=== PATIENT | male | born 1945 | race Caucasian/White ===

== ENCOUNTER 2016-09-09 08:08 | Day surgery (SDC) | payer OTHER ==
[2016-09-08 13:27] VITALS: BMI 27.9
[2016-09-09 13:09] LABS: TOTAL PROTEIN,PLEURAL FLUID 5.004
[2016-09-09 13:11] VITALS: TEMP 98.1
[2016-09-09 13:13] LABS: CHLORIDE PLEURAL FLUID 104
[2016-09-09 15:50] VITALS: BP 139/77; PULSE 81
[2016-09-09 20:49] LABS: PLEURAL FLUID APPEARANCE CLEAR; PLEURAL FLUID COLOR YELLOW
[2016-09-09 20:52] LABS: PLEURAL FLUID LYMPHOCYTES 26 %; PLEURAL FLUID NEUTROPHIL 4 %
[2016-09-09 20:53] LABS: PLEURAL FLUID MACROPHAGES 49 %
--- NOTE | 2016-09-10 15:55 | PATH ---
Cytology Non-Gynecological Report Patient Name: HAILEE GRANDA Med. Rec. #: [id number] /Age/Gender: 1945 (Age: 70) / M Account: [id number] Location: RADIOLOGY Taken: 09/09/2016 Received: 09/09/2016 Reported: 09/10/2016 Physicians: Zena Gaston M.D. Specimen(s) Received LEFT PLEURAL FLUID Clinical History Pleural effusion Final Diagnosis PLEURAL FLUID, LEFT, THORACENTESIS: SATISFACTORY FOR EVALUATION. SCATTERED ATYPICAL CELLS PRESENT, FAVOR REACTIVE MESOTHELIAL CELLS. BACKGROUND REACTIVE MESOTHELIAL CELLS, HISTIOCYTES AND MIXED INFLAMMATORY CELLS. Comment: Immunohistochemical stains performed and interpreted at [facility] on the cell block show the following: the cells in the effusion are negative for TTF1 immunostain, appear negative for BerEP4/DEAN immunostains with high background staining; CK7 highlights mesothelial cells. These results are supportive of the interpretation above. Electronically Signed Ej Rendon M.D. Gross Description Received is 50 cc of yellow fluid in 50% alcohol. One cytofunnel slide and one cell block are made.
== END 2016-09-09 15:45 | disposition home or self-care (01) ==
LOC: JRADIR 08:08
PROVIDERS: ATTEND Specialist
PROC: 0W9B3ZZ Drainage of Left Pleural Cavity, Percutaneous Approach (ICD-10-PCS; principal; 2016-09-09)
PROC: BB4BZZZ Ultrasonography of Pleura (ICD-10-PCS; 2016-09-09)
DX: J90 Pleural effusion, not elsewhere classified (principal)
CPT/HCPCS: 71010-TC; 71020-TC; 76942; 82042; 82150; 82438; 82945; 83615; 84157; 84311; 84478; 87070; 87075; 87102; 87116; 87205; 87206; 87210; 88108; 88305-TC; 88341-TC; 88342-TC; 89051

== ENCOUNTER 2016-09-15 10:18 | Day surgery (SDC) | payer OTHER ==
[2016-09-12 13:22] VITALS: BMI 27.9
[2016-09-15] MEDS ORDERED: ROCURONIUM BROMIDE 50 MG/5 ML VIAL ONE (12:15)
[2016-09-15] MEDS ORDERED: MIDAZOLAM HCL 2 MG/2 ML SINGLE DOSE VIAL ONE (12:15)
[2016-09-15] MEDS ORDERED: PROPOFOL 20 ML ONE ×2 (12:15)
[2016-09-15] MEDS ORDERED: ONDANSETRON 4 MG/2 ML VIAL ONE (12:53)
--- NOTE | 2016-09-15 13:01 | EKG ---
Test Reason : Blood Pressure : / mmHG Vent. Rate : 083 BPM Atrial Rate : 083 BPM P-R Int : 156 ms QRS Dur : 098 ms QT Int : 362 ms P-R-T Axes : 073 038 081 degrees QTc Int : 425 ms NORMAL SINUS RHYTHM NONSPECIFIC T WAVE ABNORMALITY ABNORMAL ECG NO PREVIOUS ECGS AVAILABLE Confirmed by DEMETRIO ROMERO, LYNN ([id number]) on 09/15/2016 1:01:08 PM Referred By: Justin Hunt Confirmed By:LYNN ATKINSON MD
[2016-09-15] MEDS ORDERED: GLYCOPYRROLATE 0.2 MG/1 ML VIAL ONE (13:24)
[2016-09-15] MEDS ORDERED: NEOSTIGMINE METHYLSULFATE 0.5 MG/ML - 10 ML MDV ONE (13:24)
[2016-09-15] MEDS ORDERED: ACETAMINOPHEN 325 MG TABLET (FP) PO PRN (13:40)
[2016-09-15] MEDS ORDERED: oxyCODONE HCL 5 MG TABLET PO PRN (13:40)
[2016-09-15] MEDS ORDERED: ONDANSETRON 4 MG/2 ML VIAL IVPUSH PRN (13:40)
[2016-09-15] MEDS ORDERED: LACTATED RINGERS SOLUTION 1,000 ML IV SCH (13:45)
--- NOTE | 2016-09-15 13:47 | PROC ---
Procedure Note Procedure: BRONCHOSCOPY After discussing the risks and benefits of the procedure including bleeding and pneumothorax, informed consent was obtained. Pt was placed under general anesthesia and intubated with size 8.0 ETT. Storz video bronchoscope was passed via the ETT and the airways were examined down to the subsegmental level. The nathan was sharp, there were no endobronchial lesions on the right. In the left upper lobe, the lingular segment was narrowed to the point where the bronchoscope could not pass. Area was brushed, washed and transbronchial biopsies were taken. Some bleeding post op but area visualized until hemostasis achieved. Bronchoscope then withdrawn and procedure terminated. Pre-op Dx: lung mass Post-op Dx: same Plan: - f/u BAL washings for cytology, culture - f/u cytology brushings and pathology - CXR post bronchoscopy - pt to follow up with me in office Justin Hunt MD
[2016-09-15 16:20] VITALS: TEMP 97.6
[2016-09-15 18:48] VITALS: BP 148/76; PULSE 89
--- NOTE | 2016-09-24 11:19 | PATH ---
Surgical Pathology Report Patient Name: HAILEE GRANDA Med. Rec. #: [id number] /Age/Gender: 1945 (Age: 70) / M Account: [id number] Location: [facility] Taken: 09/15/2016 Received: 09/16/2016 Reported: 09/19/2016 Physicians: Justin Hunt M.D. Specimen(s) Received LUNG BIOPSY LEFT UPPER LOBE Clinical History Lung mass Final Diagnosis LUNG, LEFT UPPER LOBE, BRONCHOSCOPIC BIOPSY: BRONCHIAL TISSUE WITH FEW ATYPICAL CRUSHED GLANDS AND ACTIVE AND CHRONIC INFLAMMATION (SEE COMMENT). Comment: Only few crashed atypically appearing glands identified. No further interpretation can be made in this biopsy material. Immunohistochemical stains for CK7 and TTF1 performed and interpreted at [facility] highlight only benign bronchial epithelium. Refer to [id number] for the cytology results. The case was discussed with Dr. Hunt on 09/29/16. Electronically Signed Ej Rendon M.D. Gross Description Received in formalin labeled "left upper lung biopsy" is a 0.5 x 0.3 x 0.1 cm aggregate of barrera-brown soft tissue fragments. The formalin is filtered and the specimen is entirely submitted in one cassette. /09/16/2016 saudi09/16/2016
--- NOTE | 2016-09-24 11:19 | PATH ---
Cytology Non-Gynecological Report Patient Name: HAILEE GRANDA Med. Rec. #: [id number] /Age/Gender: 1945 (Age: 70) / M Account: [id number] Location: [facility] Taken: 09/15/2016 Received: 09/15/2016 Reported: 09/19/2016 Physicians: Justin Hunt M.D. Specimen(s) Received A: BRONCHIAL WASHINGS B: BRONCHIAL BRUSHINGS Clinical History Lung mass Final Diagnosis A. LUNG, LEFT UPPER LOBE, BRONCHIAL WASHINGS: SATISFACTORY FOR EVALUATION. POSITIVE FOR MALIGNANT CELLS. CONSISTET WITH ADENOCARCINOMA (SEE COMMENT). BACKGROUND REACTIVE BRONCHIAL CELLS AND HISTIOCYTES. Comment: The cytofunnel slide and the cell block show large markedly atypical cells with irregular nuclei and vacuolated cytoplasm. Immunohistochemical stains performed and interpreted on the cell block at [facility] show the neoplastic cells are positive with CK7 immunostain and are negative with TTF1. The cytomorphologic findings and the immunoprofile are consistent with adenocarcinoma. In the absence of metastatic disease the findings likely represent primary pulmonary adenocarcinoma. Clinical and imaging correlations are suggested to exclude metastatic disease. Comment: Refer to [id number] for the bronchoscopic biopsy results. The case was discussed with Dr. Hunt on 09/19/16. Limited material is available for biomarkers studies. B. LUNG, LEFT UPPER LOBE, BRONCHIAL BRUSHING: SATISFACTORY FOR EVALUATION. NO MALIGNANT CELLS IDENTIFIED. REACTIVE BRONCHIAL CELLS. Electronically Signed Ej Rendon M.D. Gross Description A. Received is 50 cc of bloody in color fluid in 50% alcohol. One cytofunnel slide and one cell block made. B. Received is a brush in 95% alcohol. See Pap stained smears slides are made.
== END 2016-09-15 18:50 | disposition home or self-care (01) ==
LOC: JASU-SURG 10:18
PROVIDERS: ATTEND Internal Medicine
PROC: 0B988ZX Drainage of Left Upper Lobe Bronchus, Via Natural or Artificial Opening Endoscopic, Diagnostic (ICD-10-PCS; 2016-09-15)
PROC: 0BBG8ZX Excision of Left Upper Lung Lobe, Via Natural or Artificial Opening Endoscopic, Diagnostic (ICD-10-PCS; principal; 2016-09-15 12:00)
DX: D38.1 Neoplasm of uncertain behavior of trachea, bronchus and lung (principal)
CPT/HCPCS: 71010-TC; 87070; 87102; 87116; 87205; 87206; 87210; 88104; 88108; 88305-TC; 88341-TC; 88342-TC; 93005; 93010; 94010; 94760

== ENCOUNTER 2016-09-25 07:22 | Inpatient (IN) | payer OTHER ==
[2016-09-24 12:18] VITALS: BMI 27.9
--- NOTE | 2016-09-25 13:46 | HP ---
Admitting History and Physical - Primary Care Physician PCP: Sarah Ho S - Admission Chief Complaint: s/p L lung biopsy and pneumothorax History of Present Illness: 70yo male with h/o hyperlipidemia, recently diagnosed NSCLC on 09/15 via bronchoscopy who was scheduled for a CT guided needle biopsy for more tissue sample for treatment direction who was noted to have a left apical pneumothorax pre biopsy. He denies any significant shortness of breath, chest pain. No cough or hemoptysis. No fevers, chills or sweats. He had a MRI brain done yesterday for staging work up which showed scattered nodules consistent with metastases. [facility]. He has also been complaining of left arm pain, was seen by ortho as an outpt. Pigtail catheter placed post biopsy with CXR still showing left apical pneumothorax. also d/w IR dr Monaco and pt's at bedside and pulm dr BRUNNER History Source: Patient, Family Member, Medical Record Limitations to Obtaining History: No Limitations - Past Medical History Cardiovascular: Yes: Hyperlipdemia Pulmonary: Yes: Cancer - Smoking History Smoking history: Former smoker Have you smoked in the past 12 months: No - Alcohol/Substance Use Hx Alcohol Use: No (RARE) History of Substance Use: reports: None - Social History Usual Living Arrangement: Yes: With Spouse History of Recent Travel: Yes ([place]) Home Medications - Allergies Allergies/Adverse Reactions: Allergies Allergy/AdvReac Type Severity Reaction Status Date / Time No Known Allergies Allergy Verified 09/24/16 12:25 - Home Medications Home Medications: Ambulatory Orders Aspirin [ASA -] 81 mg PO DAILY 09/08/16 Atorvastatin Ca [Lipitor] 40 mg PO DAILY 09/08/16 Vitamin B Complex 1 each PO DAILY 09/09/16 Acetaminophen W/ Codeine #3 [Tylenol # 3 -] 1 tab PO Q4H PRN 09/24/16 Family Disease History - Family Disease History Family History: Unremarkable Review of Systems - Review of Systems Constitutional: denies: Chills, Fever, Lethargy, Loss of Appetite Eyes: denies: Blind Spots, Blurred Vision, Double Vision HENT: denies: Difficult Swallowing, Epistaxis, Gingival Bleeding, Throat Pain Neck: denies: Decreased ROM, Lumps, Pain on Movement, Stiffness Cardiovascular: denies: Chest Pain (except at the chest tube site), Edema, Palpitations, Shortness of Breath Respiratory: reports: Cough (s/p cough for few weeks tx with ATB in [place]). denies: Exercise Intolerance, Hemoptysis, Orthopnea, PND, SOB, SOB on Exertion, Wheezing Gastrointestinal: denies: Abdominal Pain, Bloating, Constipation, Diarrhea, Dysphagia, Vomiting Genitourinary: denies: Discharge, Dysuria, Flank Pain, Hematuria Musculoskeletal: reports: Extremity Pain (LUE). denies: Back Pain Neurological: denies: Change in LOC, Change in Speech, Confusion, Dizziness, Headache, Seizure, Syncope Hematology/Lymphatic: denies: Easily Bruised, Excessive Bleeding Psychiatric: denies: Altered Sleep Pattern, Anxiety, Depression, Hallucinations , Suicidal Physical Examination Vital Signs: Vital Signs Temperature 98.1 F 09/25/16 07:41 Pulse Rate 78 09/25/16 10:38 Respiratory Rate 18 09/25/16 10:38 Blood Pressure 157/98 09/25/16 10:38 O2 Sat by Pulse Oximetry (%) 100 09/25/16 10:38 Constitutional: Yes: No Distress, Calm Eyes: Yes: Conjunctiva Clear HENT: Yes: Atraumatic Neck: Yes: Supple Cardiovascular: Yes: Regular Rate and Rhythm Respiratory: Yes: CTA Bilaterally, Other (L CT) Gastrointestinal: Yes: Soft. No: Distention, Tenderness Renal/: No: CVA Tenderness - Left, CVA Tenderness - Right, Hematuria Musculoskeletal: No: Joint Stiffness, Joint Swelling Extremities: No: Cold, Cool, Cyanosis Edema: No Peripheral Pulses WNL: Yes Integumentary: No: Pressure Ulcer, Rash, Venous Stasis Changes Neurological: Yes: WNL, Alert, Oriented ...Motor Strength: WNL Psychiatric: Yes: WNL, Alert, Oriented. No: Agitated, Suicidal Ideation Imaging - Results Chest X-ray: Report Reviewed MRI: Report Reviewed (brain) Assessment/Plan 70yo male with h/o hyperlipidemia, recently diagnosed NSCLC on 09/15 via bronchoscopy, now s/p CT for guided needle lung biopsy for more tissue sample for treatment direction, noted to have a left apical pneumothorax pre biopsy. He denies any significant shortness of breath, chest pain. No cough or hemoptysis. No fevers, chills or sweats. He had a MRI brain done yesterday for staging work up which showed scattered nodules consistent with metastases. Has an oncology appointment for next week and a PET scan scheduled for October 02. He has also been complaining of left arm pain, was seen by ortho as an outpt. Pigtail catheter placed post biopsy with CXR still showing left apical pneumothorax. admit to INPT pulm, oncology and neurology eval falls and DVT pfx check final path report d/w pt and
[2016-09-25 14:49] LABS: BASOPHIL 0.8 % (0-2.0); EOSINOPHIL 2.2 % (0-4.5); MCH 25.2 pg (25.7-33.7); MEAN CELL VOLUME 76.5 fl (80-96); MEAN PLT VOLUME 6.7 fl (7.5-11.1); NEUTROPHILS 74.7 % (42.8-82.8); PLATELET COUNT 180 K/MM3 (134-434); RDW 16.7 % (11.9-15.9); WHITE BLOOD COUNT 7.5 K/mm3 (4.0-10.0)
[2016-09-25 15:38] LABS: ALBUMIN 2.4 g/dl (3.4-5.0); ALK PHOS 195 U/L (45-117); ANION GAP 11 (8-16); BILIRUBIN,TOTAL 0.4 mg/dL (0.2-1.0); CALCIUM 8.8 mg/dL (8.5-10.1); CO2 27 mmol/L (21-32); CREATININE 0.6 mg/dL (0.7-1.3); GLUCOSE,RANDOM 107 mg/dL (74-106); SGOT/AST 29 U/L (15-37); SGPT/ALT 34 U/L (12-78); TOT PROT 6.7 g/dl (6.4-8.2)
--- NOTE | 2016-09-25 16:27 | CON.PULM ---
Consult Consult Specialty:: PULMONARY Referred by:: Dr. Ho Reason for Consultation:: pneumothorax/lung ca - History of Present Illness Chief Complaint: CT guided needle biopsy History of Present Illness: 70yo male with h/o hyperlipidemia, recently diagnosed NSCLC on 09/15 via bronchoscopy who was scheduled for a CT guided needle biopsy for more tissue sample for treatment direction who was noted to have a left apical pneumothorax pre biopsy. He denies any significant shortness of breath, chest pain. No cough or hemoptysis. No fevers, chills or sweats. He had a MRI brain done yesterday for staging work up which showed scattered nodules consistent with metastases. Has an oncology appointment for next week and a PET scan scheduled for October 02. He has also been complaining of left arm pain, was seen by ortho as an outpt. Pigtail catheter placed post biopsy with CXR still showing left apical pneumothorax. - History Source History Provided By: Patient, Medical Record Limitations to Obtaining History: No Limitations - Past Medical History Cardio/Vascular: Yes: Hyperlipdemia Pulmonary: Yes: Cancer - Alcohol/Substance Use Hx Alcohol Use: Yes (RARE) - Smoking History Smoking history: Former smoker Have you smoked in the past 12 months: No Home Medications - Allergies Allergies/Adverse Reactions: Allergies Allergy/AdvReac Type Severity Reaction Status Date / Time No Known Allergies Allergy Verified 09/24/16 12:25 - Home Medications Home Medications: Ambulatory Orders Aspirin [ASA -] 81 mg PO DAILY 09/08/16 Atorvastatin Ca [Lipitor] 40 mg PO DAILY 09/08/16 Vitamin B Complex 1 each PO DAILY 09/09/16 Acetaminophen W/ Codeine #3 [Tylenol # 3 -] 1 tab PO Q4H PRN 09/24/16 Review of Systems - Review of Systems Constitutional: reports: Unintentional Wgt. Loss. denies: Chills, Fever Eyes: denies: Recent Change in Vision HENT: denies: Nasal Congestion, Throat Pain Neck: denies: Stiffness, Tenderness Cardiovascular: denies: Chest Pain, Palpitations, Shortness of Breath Respiratory: reports: Cough, SOB on Exertion. denies: Hemoptysis, SOB, Wheezing Gastrointestinal: denies: Abdominal Pain, Nausea, Vomiting Genitourinary: denies: Dysuria, Hematuria Neurological: denies: Dizziness, Headache Endocrine: reports: Unexplained Weight Loss Physical Exam Vital Sings: Vital Signs Temperature 98.7 F 09/25/16 12:50 Pulse Rate 73 09/25/16 16:05 Respiratory Rate 18 09/25/16 16:05 Blood Pressure 142/70 09/25/16 16:05 O2 Sat by Pulse Oximetry (%) 98 09/25/16 16:05 Constitutional: Yes: Calm Eyes: Yes: Conjunctiva Clear, EOM Intact HENT: Yes: Atraumatic, Normocephalic Neck: Yes: Supple, Trachea Midline Cardiovascular: Yes: Regular Rate and Rhythm Respiratory: Yes: Diminished (decreased breath sounds left base) ...Clubbing: No Gastrointestinal: Yes: Normal Bowel Sounds, Soft. No: Tenderness Edema: No Neurological: Yes: Alert, Oriented Labs: CBC, BMP 09/25/16 14:26 09/25/16 14:26 Imaging - Results Chest X-ray: Report Reviewed, Image Reviewed (left apical pneumothorax) Problem List - Problems (1) Lung cancer Code(s): C34.90 - MALIGNANT NEOPLASM OF UNSP PART OF UNSP BRONCHUS OR LUNG (2) Brain metastases Code(s): C79.31 - SECONDARY MALIGNANT NEOPLASM OF BRAIN (3) Hyperlipidemia Code(s): E78.5 - HYPERLIPIDEMIA, UNSPECIFIED (4) Pleural effusion Code(s): J90 - PLEURAL EFFUSION, NOT ELSEWHERE CLASSIFIED (5) Pneumothorax Code(s): J93.9 - PNEUMOTHORAX, UNSPECIFIED Assessment/Plan Metastatic NSCLC (Adenocarcinoma) with Brain Metastases r/o Bone Mets Hyperlipidemia Pneumothorax Pleural Effusion - continue pigtail catheter to low wall suction - repeat CXR in AM - pneumothorax on CXR may be from trapped lung as there is no re-expansion after pigtail placement - f/u pathology results - oncology evaluation - check left shoulder X-ray - pain control - DVT prophylaxis Thank you for this consult Justin Hunt MD
[2016-09-25] MEDS: ACETAMINOPHEN WITH CODEINE 300MG/30MG TABLET PO PRN (21:54)
--- NOTE | 2016-09-25 22:07 | CONSULT ---
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 Recent bronchoscopic biopsy revealed Non-small cell Lung Ca. Two months of slowly progressing pain and weakness Left arm. Unable to golf x 1 month. For 2 weeks his is aware of abnormal speech and difficulty "getting the words out." MRI of brain (C-/C+) reviewed:Multiple enhancing lesions c/w metastases. The three most prominent are located in the left thalamus and right and left frontal lobes. LETHA: Normal neck ROM. - spinal palpation tenderness, Chest tube left chest. NEURO: Awake, alert. Ox3. Mild expressive aphasia. Mild Left facial Left drift. Mild decreased grasp and CARMENCITA's on Left. Brisk reflexes. Downgoing toes. Decreased cold temperature Left arm. No FTN dystaxia Gait not tested. IMP: Multiple LEGISLATORS Metastases including Left thalamic, Bifrontal with mild left hemiparesis, Aphasia and Right hypesthesia. R/O Cervical radiculopathy/ cervical met. SUGGEST: MRI of C-spine. Decadron 4 mg PO or IV q6 hrs. Radiation oncology consultation for whole brain RT. Thank you very much, Edmund Tomas MD
--- NOTE | 2016-09-25 22:44 | CONSULT ---
Consult - text type - Consultation Consultation Note: patient seen and examined 70yo male with h/o hyperlipidemia, recently diagnosed NSCLC on 09/15 via bronchoscopy who was scheduled for a CT guided needle biopsy for more tissue sample for treatment direction who was noted to have a left apical pneumothorax pre biopsy. He denies any significant shortness of breath, chest pain. No cough or hemoptysis. No fevers, chills or sweats. He had a MRI brain done for staging work up which showed scattered nodules consistent with metastases. He has also been complaining of left arm pain, was seen by ortho as an outpt. Pigtail catheter placed post biopsy with CXR still showing left apical pneumothorax. - Past Medical History Cardiovascular: Yes: Hyperlipdemia Pulmonary: nonsmall cell lung cancer - Smoking History Smoking history: Former smoker - Alcohol/Substance Use Hx Alcohol Use: No (RARE) - Social History Usual Living Arrangement: Yes: With Spouse History of Recent Travel: Yes ([place]) Home Medications - Allergies Allergies/Adverse Reactions: Allergies Allergy/AdvReac Type Severity Reaction Status Date / Time No Known Allergies Allergy Verified 09/24/16 12:25 - Home Medications Home Medications: Ambulatory Orders Aspirin [ASA -] 81 mg PO DAILY 09/08/16 Atorvastatin Ca [Lipitor] 40 mg PO DAILY 09/08/16 Vitamin B Complex 1 each PO DAILY 09/09/16 Acetaminophen W/ Codeine #3 [Tylenol # 3 -] 1 tab PO Q4H PRN 09/24/16 Family Disease History - Family Disease History Family History: Unremarkable Physical Examination Vital Signs: Vital Signs Temperature 98.1 F 09/25/16 07:41 Pulse Rate 78 09/25/16 10:38 Respiratory Rate 18 09/25/16 10:38 Blood Pressure 157/98 09/25/16 10:38 O2 Sat by Pulse Oximetry (%) 100 09/25/16 10:38 Constitutional: Yes: No Distress, Calm Eyes: Yes: Conjunctiva Clear HENT: Yes: Atraumatic Neck: Yes: Supple Cardiovascular: Yes: Regular Rate and Rhythm Respiratory: Yes: CTA Bilaterally, Gastrointestinal: Yes: Soft. Peripheral Pulses WNL: Yes Neurological: Yes: WNL, Alert, Oriented ...Motor Strength: WNL Imaging - Results Chest X-ray: Report Reviewed MRI: Report Reviewed (brain) Assessment/Plan 70yo male with h/o hyperlipidemia, recently diagnosed NSCLC on 09/15 via bronchoscopy, now s/p CT for guided needle lung biopsy for more tissue sample for treatment direction, noted to have a left apical pneumothorax pre biopsy. Recently diagnosed ANDRE adenoca. Now with LT. shoulder pain, multiple brain mets on MRI get neuro/rad-onc cosults check ct lt. shoulder/bone scan will add pdl1 and egfr/alk/ros mutation testing discussed with
[2016-09-26] MEDS: DEXAMETHASONE SOD PHOSPHATE 4 MG/1 ML VIAL IVPB SCH ×5 (03:00→21:51)
[2016-09-26 08:05] LABS: BASOPHIL 0.6 % (0-2.0); EOSINOPHIL 3.4 % (0-4.5); MCH 25.4 pg (25.7-33.7); MCHC 32.9 g/dl (32.0-35.9); MEAN CELL VOLUME 77.3 fl (80-96); MEAN PLT VOLUME 6.9 fl (7.5-11.1); NEUTROPHILS 68.8 % (42.8-82.8); PLATELET COUNT 172 K/MM3 (134-434); RDW 17.2 % (11.9-15.9); WHITE BLOOD COUNT 7.4 K/mm3 (4.0-10.0)
[2016-09-26 08:41] LABS: ALBUMIN 2.4 g/dl (3.4-5.0); ANION GAP 11 (8-16); BILIRUBIN,TOTAL 0.6 mg/dL (0.2-1.0); CO2 28 mmol/L (21-32); COCKROFT - GAULT 119.23; CREATININE 0.7 mg/dL (0.7-1.3); GLUCOSE,RANDOM 124 mg/dL (74-106); SGOT/AST 25 U/L (15-37); SGPT/ALT 29 U/L (12-78); TOT PROT 6.8 g/dl (6.4-8.2)
[2016-09-26 08:42] LABS: ALK PHOS 184 U/L (45-117)
[2016-09-26] MEDS ORDERED: PT OWN MED DRAWER 7, Y5N ONE ×2 (10:25→11:41)
--- NOTE | 2016-09-26 10:25 | PN ---
Progress Note, Physician Chief Complaint: in bed awake alert NAD afebrile seen by neuro, pulm, oncology, RxTx also called for brain RxTx started on IV steroids; will check BGM no pain nonfocal d/w pt and falls pfx; pt advised do not get OOB alone, call for help if needs OOB; he understood L CT in, CT Sx alos called - Current Medication List Current Medications: Active Medications Acetaminophen/Codeine Phosphate (Tylenol # 3 -) 1 tab PO Q4H PRN PRN Reason: PAIN Last Admin: 09/25/16 21:54 Dose: 1 tab Aspirin (Asa -) 81 mg PO DAILY ROBERT Atorvastatin Calcium (Lipitor -) 40 mg PO DAILY ROBERT Dexamethasone Sodium Phosphate (Decadron Injection -) 4 mg IVPB Q6H-IV ROBERT Last Admin: 09/26/16 08:20 Dose: Not Given Multivitamins (Total B With C -) 1 each PO DAILY ROBERT - Objective Vital Signs: Vital Signs Temperature 98.8 F 09/26/16 06:00 Pulse Rate 68 09/26/16 06:00 Respiratory Rate 20 09/26/16 06:00 Blood Pressure 133/71 09/26/16 06:00 O2 Sat by Pulse Oximetry (%) 98 09/25/16 21:00 Constitutional: Yes: No Distress, Calm Eyes: Yes: Conjunctiva Clear HENT: Yes: Atraumatic Neck: Yes: Supple Cardiovascular: Yes: Regular Rate and Rhythm Respiratory: Yes: CTA Bilaterally Gastrointestinal: Yes: Soft. No: Distention, Tenderness Genitourinary: No: CVA Tenderness - Left, CVA Tenderness - Right Musculoskeletal: No: Joint Stiffness, Joint Swelling Extremities: No: Cold, Cool Edema: No Peripheral Pulses WNL: Yes Neurological: Yes: WNL, Alert, Oriented ...Motor Strength: WNL Psychiatric: Yes: WNL, Alert, Oriented. No: Agitated, Suicidal Ideation Labs: CBC, BMP 09/26/16 06:30 09/26/16 06:30 - ....Imaging Other: Report Reviewed Assessment/Plan 70yo male with h/o hyperlipidemia, recently diagnosed NSCLC on 09/15 via bronchoscopy, now s/p CT for guided needle lung biopsy for more tissue sample for treatment direction, noted to have a left apical pneumothorax pre biopsy. He denies any significant shortness of breath, chest pain. No cough or hemoptysis. No fevers, chills or sweats. He had a MRI brain done yesterday for staging work up which showed scattered nodules consistent with metastases. Has an oncology appointment for next week and a PET scan scheduled for October 02. He has also been complaining of left arm pain, was seen by ortho as an outpt. Pigtail catheter placed post biopsy with CXR still showing left apical pneumothorax. admit to INPT pulm, oncology and neurology eval falls and DVT pfx (TEDs and SCDs on); no heparin or lovenox b/o brain mets risk of bleed check final path report d/w pt and
[2016-09-26] MEDS: ASPIRIN 81 MG CHEWABLE TABLETS PO SCH (10:43)
[2016-09-26] MEDS: ATORVASTATIN CA 40 MG TABLET (FP) PO SCH (10:43)
--- NOTE | 2016-09-26 12:07 | PN ---
Progress Note (short form) - Note Progress Note: PULMONARY WELL KNOWN BY OUR SERVICE FAMILY PRESENT AWAKE/ALERT VSS/AFEBRILE ANICTERIC DISTANT B/L BREATH SOUNDS LEFT PIGTAIL CATHETER-PLEUROVAC S1S2 BS+ SCD'S B/L CXR NOTED: LEFT UPPER LOBE MASS/LEFT APICAL PTX REMAINS MEDS/NOTES REVIEWED NSCLC LEFT UPPER LOBE POST FOB PTX NOW WITH PIGTAIL CATHETER BRAIN METS ON MRI SEVERE LEFT SHOULDER PAIN R/O BONE METS WILL ORDER BONE SCAN ONCO F/U DVT PROPHYLAXSIS R ROSSI ROMERO
[2016-09-26] MEDS: VITAMIN B COMPLEX W/C COMBO TABLET (FP) PO SCH (12:42)
--- NOTE | 2016-09-26 16:55 | PATH ---
Surgical Pathology Report Patient Name: HAILEE GRANDA Med. Rec. #: [id number] /Age/Gender: 1945 (Age: 70) / M Account: [id number] Location: [facility] MED/SURG Taken: 09/25/2016 Received: 09/25/2016 Reported: 09/26/2016 Physicians: Bin Jackson M.D. Justin Hunt M.D. Zena Chase M.D. Specimen(s) Received LEFT LUNG CORE BIOPSY Clinical History 70 yo male with a large left central mass Final Diagnosis LUNG, LEFT, CT GUIDED CORE BIOPSY: ADENOCARCINOMA, MODERATELY TO POORLY DIFFERENTIATED, WITH ACINAR, SOLID AND FOCAL LEPIDIC PATTERNS, WITH EXTENSIVE NECROSIS (SEE COMMENT). Comment: Prior bronchoscopic biopsy ([id number]) demonstrating few atypical glands and prior cytology specimen ([id number]) demonstrating adenocarcinoma in the bronchial washings are noted. Immunohistochemical stains performed and interpreted at [facility] show the following results: The neoplastic cells are positive for CK7 and CK20 immunostains, and negative with p63 immunostain; TTF1 immunostain highlights predominantly residual benign cells. Mucicarmine stain shows very focal mucin. The morphologic findings and the immunoprofile are consistent with adenocarcinoma. The immunoprofile is not specific for a particular site origin: in the absence of another possible primary site, the finding would be compatible with lung origin of this neoplasm. PD-L1 (Keytruda) IHC studies are pending; results will be reported in an addendum. The material is available for molecular biomarkers studies. The case was preliminary discussed with Dr. León on 09/26/16. Electronically Signed Ej Rendon M.D. Addendum Reported: 10/01/2016 Addendum Diagnosis PD-L1 (Keytruda) IHC, Clone 22C3 Pharm Dx performed and interpreted at [place], [place] (specimen # [id number]) shows the following: Result: PD-L1 (KEYTRUDA) TPS: <1% (NO EXPRESSION) Reference Range: TPS=Tumor Proportion Score (% of at least 100 viable tumor cells showing complete or partial membrane staining at =1+) TPS< 1% =No Expression TPS 1-49% =Low Expression. Eligible for second line treatment with Keytruda. TPS =50% =High Expression. Eligible for first or second line treatment with Keytruda. The PD-L1, 22C3 pharmDx is FDA approved for use in the detection of PD-L1 in formalin-fixed paraffin-embedded non-small cell lung carcinoma using the [employer] platform. The assay is indicated as an aid in identifying NSCLC patients for treatment with Keytruda (pembrolizumab). Ej Rendon M.D. Addendum Reported: 10/03/2016 Addendum Diagnosis FISH for ALK and ROS1 rearrangements performed and interpreted at [facility] [place], [place] showed the following: Interpretation: No evidence of a rearrangement of ALK (2p23) No evidence of a rearrangement of ROS1 (6q22) Ej Rendon M.D. Addendum Reported: 10/06/2016 Addendum Diagnosis EGFR MUTATION ANALYSIS PERFORMED AND INTERPRETED AT [facility] [place], [place] ([id number]) SHOWED THE FOLLOWING: Results: No mutation detected Interpretation: No mutations were identified in the sample provided for analysis. Fewer than 5% of non-small cell lung carcinoma patients without identifiable mutations are reported to be responsive to EGFR tyrosine kinase inhibitor therapies. Ej Rendon M.D. Gross Description Received in formalin labeled "left lung biopsy," are 4 barrera, cylindrical portions of soft tissue ranging from 0.8-1.4 cm in length and averaging 0.1 cm in diameter. The specimens are submitted in toto in one cassette. 09/25/201609/25/2016
--- NOTE | 2016-09-26 16:56 | PATH ---
Cytology Non-Gynecological Report Patient Name: HAILEE GRANDA Med. Rec. #: [id number] /Age/Gender: 1945 (Age: 70) / M Account: [id number] Location: [facility] MED/SURG Taken: 09/25/2016 Received: 09/25/2016 Reported: 09/26/2016 Physicians: Zena Gaston M.D. Smitha Mellacheruvu, M.D. Ana Androne, M.D. Specimen(s) Received PLEURAL FLUID Clinical History Pleural effusion, lung mass Final Diagnosis PLEURAL FLUID, THORACENTESIS: SATISFACTORY FOR EVALUATION. SCATTERED ATYPICAL CELLS PRESENT, SUSPICIOUS FOR INVOLVEMENT BY ADENOCARCINOMA (SEE COMMENT). Comment: History of recently diagnosed adenocarcinoma is noted ([id number], [id number]). Immunohistochemical stains performed and interpreted on the cell block [facility] show the following: few cells in the effusion are positive for BerEP4/DEAN immunostain and CK7 immunostain, which also highlights epithelial cells; the cells in the effusion are negative for TTF1. The cytomorphologic findings and the immunoprofile are suspicious for involvement by recently diagnosed adenocarcinoma. Electronically Signed Ej Rendon M.D. Gross Description Received is 50 cc of bloody fluid in 50% alcohol. One cytofunnel slides and one cell block are made.
--- NOTE | 2016-09-26 18:27 | PN ---
Progress Note (short form) - Note Progress Note: Radiation Oncology (full consult to follow) 70yo former smoker recently dx'd w ANDRE Adenoca s/p thoracentesis and FOB, admitted for bx for additional tissue for stains found to have PTX s/p chest tube, MRI brain demonstrating multiple (at least 6) bilateral lesions with mass effect on ventricle c/w mets. On review with radiologist, there are progressive mets in the left humeral head and right 7th lateral rib. No new SOB or hemoptysis. CXR shows improved but persistent PTX. Path from CT-bx shows adenocarcinoma, PDL-1 pending. Presently neurologically stable with mild expressive aphasia, left sided weakness in addition to pain in left shoulder. I concur with Dr. Tomas's recommendation for WBRT and in addition palliative RT to the left shoulder. Agree with CT of left upper extremity and bone scan to better define extent of bony disease. Agree with continuing decadron. While awaiting additional stains which may be helpful in systemic tx decision, he can proceed with XRT once cleared by IR and Pulmonary. Follow up CXR for PTX and CTS consult discussed. Pt and are agreeable to continuing the workup and treatment here.
[2016-09-26] MEDS ORDERED: HEPARIN NA (PORCINE) 5,000 UNITS/ML 1ML VIAL SQ SCH (22:00)
--- NOTE | 2016-09-26 23:16 | PN ---
Progress Note (short form) - Note Progress Note: Patient seen and examined Denies any complaints AFVSS Cor: RSR, No murmurs, No gallops Lungs: Clear to P&A Abd: Soft, Normal bowel sounds, No organomegaly Ext:No significant edema Skin: No rashes, Integument intact Labs/meds reviewed A/P 70 y/o patient with metastatic lung cancer/adenoca Lt. shoulder met brain mets with pneumothorax after biopsy , s/p chest tube will monitor will need MRI C-spine/bone scan once chest tube is taken out
[2016-09-27] MEDS: DEXAMETHASONE SOD PHOSPHATE 4 MG/1 ML VIAL IVPB SCH ×4 (03:35→21:10)
--- NOTE | 2016-09-27 06:46 | CONSULT ---
Consult - text type - Consultation Consultation Note: Thoracic Surgery Attending: Pt seen/examined. Consulted for pneumothorax s/p biopsy of lung mass. Imaging c/ w diffuse metastatic disease and likely malignant effusion. S/p CT guided bx, developed pneumothorax which was the reason for consult. Likely pneumothorax secondary to some endobronchial obstruction, trap of lung from tumor, as well. However, it has slowly expanded. There is no obvious air-leak on the pleurovac but it is not tidaling. He needs to undergo palliative radiation. Would monitor drainage and leave tube for now. If drains high amounts, reasonable to convert to pleur-x (I did not mention this option to him and his family yet). If drainage is low would do clamp trial or convert to Heimlich valve. If plan is to get palliative radiation therapy as inpatient would leave tube in for now. I have spent 40minutes with greater than 50% in counseling and coordination of care and obtaining a history/physical, and reviewing images and pathology results.
[2016-09-27 07:38] LABS: BASOPHIL 0.1 % (0-2.0); MCH 25.2 pg (25.7-33.7); MEAN CELL VOLUME 76.5 fl (80-96); MEAN PLT VOLUME 6.8 fl (7.5-11.1); NEUTROPHILS 89.6 % (42.8-82.8); PLATELET COUNT 208 K/MM3 (134-434); RDW 17.1 % (11.9-15.9); WHITE BLOOD COUNT 11.4 K/mm3 (4.0-10.0)
--- NOTE | 2016-09-27 08:49 | PN ---
Progress Note, Physician Chief Complaint: in bed nad at bedside no new c/o lung biopsy preliminary noted oncology and RxTx f/u chest tube still in for pneumothorax had some constipation; ordered miralax prn, po water and high fiber diet - Current Medication List Current Medications: Active Medications Acetaminophen/Codeine Phosphate (Tylenol # 3 -) 1 tab PO Q4H PRN PRN Reason: PAIN Last Admin: 09/25/16 21:54 Dose: 1 tab Aspirin (Asa -) 81 mg PO DAILY [facility] Last Admin: 09/26/16 10:43 Dose: 81 mg Atorvastatin Calcium (Lipitor -) 40 mg PO DAILY [facility] Last Admin: 09/26/16 10:43 Dose: 40 mg Dexamethasone Sodium Phosphate (Decadron Injection -) 4 mg IVPB Q6H-IV [facility] Last Admin: 09/27/16 03:35 Dose: 4 mg Multivitamins (Total B With C -) 1 each PO DAILY [facility] Last Admin: 09/26/16 12:42 Dose: 1 each - Objective Vital Signs: Vital Signs Temperature 96.3 F L 09/27/16 06:00 Pulse Rate 58 L 09/27/16 06:00 Respiratory Rate 20 09/27/16 06:00 Blood Pressure 127/67 09/27/16 06:00 O2 Sat by Pulse Oximetry (%) 98 09/26/16 21:00 Constitutional: Yes: No Distress, Calm Eyes: Yes: Conjunctiva Clear HENT: Yes: Atraumatic Neck: Yes: Supple Cardiovascular: Yes: Regular Rate and Rhythm Respiratory: Yes: CTA Bilaterally Gastrointestinal: Yes: Soft. No: Distention, Tenderness Musculoskeletal: No: Joint Stiffness, Joint Swelling Extremities: No: Calf Tenderness, Cold, Cool Edema: No Neurological: Yes: WNL, Alert, Oriented ...Motor Strength: WNL Psychiatric: Yes: WNL, Alert, Oriented. No: Agitated, Suicidal Ideation Labs: CBC, BMP 09/27/16 06:00 - ....Imaging Other: Report Reviewed Assessment/Plan 70yo male with h/o hyperlipidemia, recently diagnosed NSCLC on 09/15 via bronchoscopy, now s/p CT for guided needle lung biopsy for more tissue sample for treatment direction, noted to have a left apical pneumothorax pre biopsy. He denies any significant shortness of breath, chest pain. No cough or hemoptysis. No fevers, chills or sweats. He had a MRI brain done yesterday for staging work up which showed scattered nodules consistent with metastases. Has an oncology appointment for next week and a PET scan scheduled for October 02. He has also been complaining of left arm pain, was seen by ortho as an outpt. Pigtail catheter placed post biopsy with CXR still showing left apical pneumothorax. admit to INPT pulm, oncology and neurology eval falls and DVT pfx (TEDs and SCDs on); no heparin or lovenox b/o brain mets risk of bleed check final path report miralax po prn d/w pt and
[2016-09-27] MEDS ORDERED: PT OWN MED DRAWER 7, Y5N ONE (09:31)
[2016-09-27] MEDS: ASPIRIN 81 MG CHEWABLE TABLETS PO SCH (09:43)
[2016-09-27] MEDS: VITAMIN B COMPLEX W/C COMBO TABLET (FP) PO SCH (09:44)
[2016-09-27 09:52] LABS: ALBUMIN 2.3 g/dl (3.4-5.0); BILIRUBIN,TOTAL 0.3 mg/dL (0.2-1.0); SGOT/AST 14 U/L (15-37)
[2016-09-27 11:05] LABS: ALK PHOS 173 U/L (45-117); ANION GAP 12 (8-16); CALCIUM 9.2 mg/dL (8.5-10.1); CO2 26 mmol/L (21-32); COCKROFT - GAULT 119.23; CREATININE 0.7 mg/dL (0.7-1.3); GLUCOSE,RANDOM 225 mg/dL (74-106); SGPT/ALT 26 U/L (12-78)
--- NOTE | 2016-09-27 11:26 | PN ---
Progress Note (short form) - Note Progress Note: Awake and alert. No CP or SOB. No air leak noted. CXR: Small apical PTX Intake & Output 09/24/16 09/25/16 09/26/16 09/27/16 23:59 23:59 23:59 23:59 Intake Total 150 50 Output Total 2570 650 Balance -2570 -500 50 Weight 184 lb Last Vital Signs Temp Pulse Resp BP Pulse Ox 96.3 F L 58 L 20 127/67 98 09/27/16 06:00 09/27/16 06:00 09/27/16 06:00 09/27/16 06:00 09/26/16 21:00 Active Medications Acetaminophen/Codeine Phosphate (Tylenol # 3 -) 1 tab PO Q4H PRN PRN Reason: PAIN Last Admin: 09/25/16 21:54 Dose: 1 tab Aspirin (Asa -) 81 mg PO DAILY [facility] Last Admin: 09/27/16 09:43 Dose: 81 mg Atorvastatin Calcium (Lipitor -) 40 mg PO DAILY [facility] Last Admin: 09/26/16 10:43 Dose: 40 mg Dexamethasone Sodium Phosphate (Decadron Injection -) 4 mg IVPB Q6H-IV [facility] Last Admin: 09/27/16 09:43 Dose: 4 mg Multivitamins (Total B With C -) 1 each PO DAILY [facility] Last Admin: 09/27/16 09:44 Dose: 1 each Constitutional: Yes: NAD Eyes: Yes: Conjunctiva Clear, EOM Intact HENT: Yes: Atraumatic, Normocephalic Neck: Yes: Supple, Trachea Midline Cardiovascular: Yes: Regular Rate and Rhythm Respiratory: Yes: Left pigtail -> No air leak ...Clubbing: No Gastrointestinal: Yes: Normal Bowel Sounds, Soft. No: Tenderness Edema: No Neurological: Yes: Alert, Oriented Labs: Laboratory Results - last 24 hr 09/27/16 09/27/16 06:00 06:00 WBC 11.4 H D RBC 4.45 Hgb 11.2 L Hct 34.0 L MCV 76.5 L MCHC 33.0 RDW 17.1 H Plt Count 208 D MPV 6.8 L Neutrophils % 89.6 H D Lymphocytes % 6.6 L D Monocytes % 3.7 L Eosinophils % 0.0 D Basophils % 0.1 Sodium 138 Potassium 4.5 Chloride 100 Carbon Dioxide 26 Anion Gap 12 BUN 23 H D Creatinine 0.7 Creat Clearance w eGFR > 60 Random Glucose 225 H D Calcium 9.2 Total Bilirubin 0.3 D AST 14 L D ALT 26 Alkaline Phosphatase 173 H Total Protein 7.0 Albumin 2.3 L Problem List - Problems (1) Lung cancer Code(s): C34.90 - MALIGNANT NEOPLASM OF UNSP PART OF UNSP BRONCHUS OR LUNG (2) Brain metastases Code(s): C79.31 - SECONDARY MALIGNANT NEOPLASM OF BRAIN (3) Hyperlipidemia Code(s): E78.5 - HYPERLIPIDEMIA, UNSPECIFIED (4) Pleural effusion Code(s): J90 - PLEURAL EFFUSION, NOT ELSEWHERE CLASSIFIED (5) Pneumothorax Code(s): J93.9 - PNEUMOTHORAX, UNSPECIFIED Assessment/Plan Metastatic NSCLC (Adenocarcinoma) with Brain Metastases Bone Mets Hyperlipidemia Pneumothorax Pleural Effusion - continue pigtail catheter to low wall suction - repeat CXR in AM - pneumothorax on CXR may be from trapped lung as there is no re-expansion after pigtail placement - f/u final pathology results - pain control - DVT prophylaxis Dr Chamberlain
[2016-09-27] MEDS: ATORVASTATIN CA 40 MG TABLET (FP) PO SCH (12:04)
[2016-09-27] MEDS: INSULIN SLIDING SCALE (NOVOLOG) 1 VIAL SQ SCH ×2 (16:08→23:03)
[2016-09-27] MEDS: ACETAMINOPHEN WITH CODEINE 300MG/30MG TABLET PO PRN (19:44)
[2016-09-28] MEDS: DEXAMETHASONE SOD PHOSPHATE 4 MG/1 ML VIAL IVPB SCH ×4 (03:25→21:23)
[2016-09-28] MEDS: INSULIN SLIDING SCALE (NOVOLOG) 1 VIAL SQ SCH ×4 (06:36→21:23)
[2016-09-28 07:14] LABS: BASOPHIL 0.1 % (0-2.0); MCH 25.2 pg (25.7-33.7); MCHC 32.9 g/dl (32.0-35.9); MEAN CELL VOLUME 76.6 fl (80-96); MEAN PLT VOLUME 6.9 fl (7.5-11.1); NEUTROPHILS 90.2 % (42.8-82.8); PLATELET COUNT 226 K/MM3 (134-434); WHITE BLOOD COUNT 13.7 K/mm3 (4.0-10.0)
[2016-09-28 07:48] LABS: ALBUMIN 2.3 g/dl (3.4-5.0); ANION GAP 7 (8-16); BILIRUBIN,TOTAL 0.4 mg/dL (0.2-1.0); CALCIUM 8.9 mg/dL (8.5-10.1); CO2 29 mmol/L (21-32); COCKROFT - GAULT 104.32; CREATININE 0.8 mg/dL (0.7-1.3); GLUCOSE,RANDOM 191 mg/dL (74-106); SGOT/AST 18 U/L (15-37); SGPT/ALT 33 U/L (12-78); TOT PROT 6.8 g/dl (6.4-8.2)
[2016-09-28 07:49] LABS: ALK PHOS 163 U/L (45-117)
[2016-09-28] MEDS ORDERED: PT OWN MED DRAWER 7, Y5N ONE (09:21)
[2016-09-28] MEDS: ACETAMINOPHEN WITH CODEINE 300MG/30MG TABLET PO PRN (09:30)
[2016-09-28] MEDS: ATORVASTATIN CA 40 MG TABLET (FP) PO SCH (09:31)
[2016-09-28] MEDS: ASPIRIN 81 MG CHEWABLE TABLETS PO SCH (09:31)
[2016-09-28] MEDS: VITAMIN B COMPLEX W/C COMBO TABLET (FP) PO SCH (09:32)
--- NOTE | 2016-09-28 11:52 | PN ---
Progress Note (short form) - Note Progress Note: Awake and alert. No CP or SOB. No air leak noted. CXR: Small apical PTX Intake & Output 09/25/16 09/26/16 09/27/16 09/28/16 23:59 23:59 23:59 23:59 Intake Total 150 800 50 Output Total 2570 650 400 Balance -2570 -500 400 50 Last Vital Signs Temp Pulse Resp BP Pulse Ox 97.7 F 48 L 18 126/67 99 09/28/16 06:22 09/28/16 06:22 09/28/16 06:22 09/28/16 06:22 09/27/16 21:00 Active Medications Acetaminophen/Codeine Phosphate (Tylenol # 3 -) 1 tab PO Q4H PRN PRN Reason: PAIN Last Admin: 09/28/16 09:30 Dose: 1 tab Aspirin (Asa -) 81 mg PO DAILY [facility] Last Admin: 09/28/16 09:31 Dose: 81 mg Atorvastatin Calcium (Lipitor -) 40 mg PO DAILY [facility] Last Admin: 09/28/16 09:31 Dose: 40 mg Dexamethasone Sodium Phosphate (Decadron Injection -) 4 mg IVPB Q6H-IV [facility] Last Admin: 09/28/16 09:31 Dose: 4 mg Insulin Aspart (Novolog Vial Sliding Scale -) 1 vial SQ ACHS [facility] PRN Reason: Protocol Last Admin: 09/28/16 06:36 Dose: 2 units Multivitamins (Total B With C -) 1 each PO DAILY [facility] Last Admin: 09/28/16 09:32 Dose: 1 each Constitutional: Yes: NAD Eyes: Yes: Conjunctiva Clear, EOM Intact HENT: Yes: Atraumatic, Normocephalic Neck: Yes: Supple, Trachea Midline Cardiovascular: Yes: Regular Rate and Rhythm Respiratory: Yes: Left pigtail -> No air leak ...Clubbing: No Gastrointestinal: Yes: Normal Bowel Sounds, Soft. No: Tenderness Edema: No Neurological: Yes: Alert, Oriented Labs: Laboratory Results - last 24 hr 09/27/16 09/27/16 09/28/16 16:06 22:59 06:10 WBC 13.7 H RBC 4.51 Hgb 11.4 L Hct 34.6 L MCV 76.6 L MCHC 32.9 RDW 17.0 H Plt Count 226 MPV 6.9 L Neutrophils % 90.2 H Lymphocytes % 6.4 L Monocytes % 3.3 L Eosinophils % 0.0 Basophils % 0.1 Sodium Potassium Chloride Carbon Dioxide Anion Gap BUN Creatinine Creat Clearance w eGFR POC Glucometer 302 319 Random Glucose Calcium Total Bilirubin AST ALT Alkaline Phosphatase Total Protein Albumin 09/28/16 09/28/16 06:10 06:31 WBC RBC Hgb Hct MCV MCHC RDW Plt Count MPV Neutrophils % Lymphocytes % Monocytes % Eosinophils % Basophils % Sodium 138 Potassium 4.4 Chloride 102 Carbon Dioxide 29 Anion Gap 7 L BUN 23 H Creatinine 0.8 Creat Clearance w eGFR > 60 POC Glucometer 187 Random Glucose 191 H Calcium 8.9 Total Bilirubin 0.4 D AST 18 D ALT 33 D Alkaline Phosphatase 163 H Total Protein 6.8 Albumin 2.3 L Problem List - Problems (1) Lung cancer Code(s): C34.90 - MALIGNANT NEOPLASM OF UNSP PART OF UNSP BRONCHUS OR LUNG (2) Brain metastases Code(s): C79.31 - SECONDARY MALIGNANT NEOPLASM OF BRAIN (3) Hyperlipidemia Code(s): E78.5 - HYPERLIPIDEMIA, UNSPECIFIED (4) Pleural effusion Code(s): J90 - PLEURAL EFFUSION, NOT ELSEWHERE CLASSIFIED (5) Pneumothorax Code(s): J93.9 - PNEUMOTHORAX, UNSPECIFIED Assessment/Plan Metastatic NSCLC (Adenocarcinoma) with Brain Metastases Bone Mets Hyperlipidemia Pneumothorax Pleural Effusion - continue pigtail catheter to low wall suction - repeat CXR in AM - pneumothorax on CXR may be from trapped lung as there is no re-expansion after pigtail placement - f/u final pathology results - pain control - DVT prophylaxis Dr Chamberlain
[2016-09-28] MEDS ORDERED: SENNOSIDES 8.6MG TABLET (FP) PO PRN (11:56)
--- NOTE | 2016-09-28 12:20 | PN ---
Progress Note, Physician Chief Complaint: CXR with residula pneumothorax, chest tube still in all consults and results reviewed and d/w pt and at bedside - Current Medication List Current Medications: Active Medications Acetaminophen/Codeine Phosphate (Tylenol # 3 -) 1 tab PO Q4H PRN PRN Reason: PAIN Last Admin: 09/28/16 09:30 Dose: 1 tab Aspirin (Asa -) 81 mg PO DAILY [facility] Last Admin: 09/28/16 09:31 Dose: 81 mg Atorvastatin Calcium (Lipitor -) 40 mg PO DAILY [facility] Last Admin: 09/28/16 09:31 Dose: 40 mg Dexamethasone Sodium Phosphate (Decadron Injection -) 4 mg IVPB Q6H-IV [facility] Last Admin: 09/28/16 09:31 Dose: 4 mg Insulin Aspart (Novolog Vial Sliding Scale -) 1 vial SQ ACHS [facility] PRN Reason: Protocol Last Admin: 09/28/16 06:36 Dose: 2 units Multivitamins (Total B With C -) 1 each PO DAILY [facility] Last Admin: 09/28/16 09:32 Dose: 1 each Polyethylene Glycol (Miralax (For Daily Use) -) 17 gm PO DAILY [facility] Senna (Senna -) 2 tab PO HS PRN PRN Reason: CONSTIPATION - Objective Vital Signs: Vital Signs Temperature 97.7 F 09/28/16 06:22 Pulse Rate 48 L 09/28/16 06:22 Respiratory Rate 18 09/28/16 06:22 Blood Pressure 126/67 09/28/16 06:22 O2 Sat by Pulse Oximetry (%) 99 09/27/16 21:00 Constitutional: Yes: No Distress, Calm Eyes: Yes: Conjunctiva Clear HENT: Yes: Atraumatic Neck: Yes: Supple Cardiovascular: Yes: Regular Rate and Rhythm Respiratory: Yes: CTA Bilaterally Gastrointestinal: Yes: Soft. No: Tenderness Musculoskeletal: No: Joint Stiffness, Joint Swelling, Muscle Pain Extremities: No: Calf Tenderness, Cold, Cool, Cyanosis Edema: No Integumentary: No: Rash, Skin Tear, Venous Stasis Changes Neurological: Yes: WNL, Alert, Oriented ...Motor Strength: WNL Psychiatric: Yes: WNL, Alert, Oriented. No: Agitated, Suicidal Ideation Labs: CBC, BMP 09/28/16 06:10 09/28/16 06:10 - ....Imaging Other: Report Reviewed Assessment/Plan 70yo male with h/o hyperlipidemia, recently diagnosed NSCLC on 09/15 via bronchoscopy, now s/p CT for guided needle lung biopsy for more tissue sample for treatment direction, noted to have a left apical pneumothorax pre biopsy. He denies any significant shortness of breath, chest pain. No cough or hemoptysis. No fevers, chills or sweats. He had a MRI brain which showed scattered nodules consistent with metastases. Has an oncology appointment for next week and a PET scan scheduled for October 02. He has also been complaining of left arm pain, was seen by ortho as an outpt. Pigtail catheter placed post biopsy with CXR still showing left apical pneumothorax. admit to INPT pulm, oncology and neurology eval falls and DVT pfx (TEDs and SCDs on); no heparin or lovenox b/o brain mets risk of bleed check final path report miralax po prn d/w pt and
[2016-09-28] MEDS: POLYETHYLENE GLYCOL 3350 119 GM BTL PO SCH (12:36)
[2016-09-29] MEDS: DEXAMETHASONE SOD PHOSPHATE 4 MG/1 ML VIAL IVPB SCH ×4 (02:28→21:02)
[2016-09-29] MEDS: INSULIN SLIDING SCALE (NOVOLOG) 1 VIAL SQ SCH ×4 (06:06→21:02)
[2016-09-29 08:15] LABS: BASOPHIL 0.1 % (0-2.0); MCHC 32.5 g/dl (32.0-35.9); MEAN PLT VOLUME 7.2 fl (7.5-11.1); NEUTROPHILS 87.5 % (42.8-82.8); PLATELET COUNT 227 K/MM3 (134-434); RDW 16.9 % (11.9-15.9); WHITE BLOOD COUNT 11.7 K/mm3 (4.0-10.0)
[2016-09-29 08:34] LABS: ALBUMIN 2.2 g/dl (3.4-5.0); ANION GAP 11 (8-16); CALCIUM 8.6 mg/dL (8.5-10.1); CO2 28 mmol/L (21-32); COCKROFT - GAULT 119.23; CREATININE 0.7 mg/dL (0.7-1.3); GLUCOSE,RANDOM 242 mg/dL (74-106); SGOT/AST 16 U/L (15-37); SGPT/ALT 34 U/L (12-78)
[2016-09-29 08:36] LABS: ALK PHOS 156 U/L (45-117); BILIRUBIN,TOTAL 0.4 mg/dL (0.2-1.0); TOT PROT 6.4 g/dl (6.4-8.2)
--- NOTE | 2016-09-29 09:31 | PN ---
Progress Note (short form) - Note Progress Note: PULMONARY HAD LEFT SHOULDER PAIN RELIEVED BY TYLENOL #3 AWAKE/ALERT VSS/AFEBRILE ANICTERIC DISTANT B/L BREATH SOUNDS LEFT PIGTAIL CATHETER-PLEUROVAC S1S2 BS+ SCD'S B/L CXR NOTED: LEFT UPPER LOBE MASS/LEFT APICAL PTX REMAINS FROM 09/28 CXR TODAY PENDING MEDS/NOTES REVIEWED NSCLC LEFT UPPER LOBE POST FOB PTX NOW WITH PIGTAIL CATHETER BRAIN METS ON MRI SEVERE LEFT SHOULDER PAIN FROM LYTIC BONE METS ONCO F/U/ONCO RT NOTED DVT PROPHYLAXSIS/DECADRON/PAIN RELIEF/CHECK CXR TODAY Evelio RICHEY MD
[2016-09-29] MEDS: ASPIRIN 81 MG CHEWABLE TABLETS PO SCH (10:25)
[2016-09-29] MEDS: ATORVASTATIN CA 40 MG TABLET (FP) PO SCH (10:25)
[2016-09-29] MEDS: POLYETHYLENE GLYCOL 3350 119 GM BTL PO SCH ×2 (10:28→11:10)
[2016-09-29] MEDS: VITAMIN B COMPLEX W/C COMBO TABLET (FP) PO SCH (10:28)
--- NOTE | 2016-09-29 11:02 | PN ---
Progress Note, Physician Chief Complaint: in bed nad afebrile no new c/o - Current Medication List Current Medications: Active Medications Acetaminophen/Codeine Phosphate (Tylenol # 3 -) 1 tab PO Q4H PRN PRN Reason: PAIN Last Admin: 09/28/16 09:30 Dose: 1 tab Aspirin (Asa -) 81 mg PO DAILY [facility] Last Admin: 09/29/16 10:25 Dose: 81 mg Atorvastatin Calcium (Lipitor -) 40 mg PO DAILY [facility] Last Admin: 09/29/16 10:25 Dose: 40 mg Dexamethasone Sodium Phosphate (Decadron Injection -) 4 mg IVPB Q6H-IV [facility] Last Admin: 09/29/16 09:25 Dose: 4 mg Insulin Aspart (Novolog Vial Sliding Scale -) 1 vial SQ ACHS [facility] PRN Reason: Protocol Last Admin: 09/29/16 06:06 Dose: 4 units Multivitamins (Total B With C -) 1 each PO DAILY [facility] Last Admin: 09/29/16 10:28 Dose: 1 each Polyethylene Glycol (Miralax (For Daily Use) -) 17 gm PO DAILY [facility] Last Admin: 09/29/16 10:28 Dose: Not Given Senna (Senna -) 2 tab PO HS PRN PRN Reason: CONSTIPATION - Objective Vital Signs: Vital Signs Temperature 98.3 F 09/29/16 06:00 Pulse Rate 47 L 09/29/16 06:00 Respiratory Rate 20 09/29/16 06:00 Blood Pressure 125/68 09/29/16 06:00 O2 Sat by Pulse Oximetry (%) 93 L 09/28/16 09:00 Constitutional: Yes: No Distress, Calm Eyes: Yes: Conjunctiva Clear HENT: Yes: Atraumatic Neck: Yes: Supple Cardiovascular: Yes: Regular Rate and Rhythm Respiratory: Yes: CTA Bilaterally Gastrointestinal: Yes: Soft Genitourinary: No: Hematuria Musculoskeletal: No: Joint Stiffness Extremities: No: Cold, Cool Edema: No Neurological: Yes: WNL, Alert, Oriented ...Motor Strength: WNL Psychiatric: Yes: WNL, Alert, Oriented. No: Agitated Labs: CBC, BMP 09/29/16 06:30 09/29/16 06:30 - ....Imaging Other: Report Reviewed Assessment/Plan 70yo male with h/o hyperlipidemia, recently diagnosed NSCLC on 09/15 via bronchoscopy, now s/p CT for guided needle lung biopsy for more tissue sample for treatment direction, noted to have a left apical pneumothorax pre biopsy. He denies any significant shortness of breath, chest pain. No cough or hemoptysis. No fevers, chills or sweats. He had a MRI brain which showed scattered nodules consistent with metastases. Left humeral metastases. pulm, oncology and neurology f/u radiation oncology eval for inpt radiation iv decadron per neuro for brain mets falls and DVT pfx (TEDs and SCDs on); no heparin or lovenox b/o brain mets risk of bleed pt advised do not get OOB alone, call for help if needs OOB; risks of falls dw pt and ; start po PPI for gastric PFX/ on decadron BGM and sq insulin prn / while on decadron miralax po prn d/w pt and
--- NOTE | 2016-09-29 11:44 | PN ---
Progress Note (short form) - Note Progress Note: Vascular Surgery Pt seen and examined. Spoke to pt and bedside. Will be on standby for port placement. Once cleared will place port Luis Conti DO
[2016-09-29] MEDS: PANTOPRAZOLE 40 MG TABLET (FP) PO SCH (20:04)
--- NOTE | 2016-09-29 22:49 | PN ---
Progress Note (short form) - Note Progress Note: Patient seen and examined Denies any complaints AFVSS Cor: RSR, No murmurs, No gallops Lungs: Clear to P&A Abd: Soft, Normal bowel sounds, No organomegaly Ext:No significant edema Skin: No rashes, Integument intact Labs/meds reviewed A/P 70 y/o patient with metastatic lung cancer/adenoca Lt. shoulder met brain mets/Lt. shoulder met On decadron rad-onc f/u
[2016-09-30] MEDS: DEXAMETHASONE SOD PHOSPHATE 4 MG/1 ML VIAL IVPB SCH ×4 (02:28→21:17)
[2016-09-30] MEDS: INSULIN SLIDING SCALE (NOVOLOG) 1 VIAL SQ SCH ×4 (06:22→21:23)
[2016-09-30 08:06] LABS: BASOPHIL 0.1 % (0-2.0); MCH 25.3 pg (25.7-33.7); MEAN CELL VOLUME 76.7 fl (80-96); NEUTROPHILS 87.2 % (42.8-82.8); PLATELET COUNT 224 K/MM3 (134-434); RDW 16.7 % (11.9-15.9); WHITE BLOOD COUNT 12.2 K/mm3 (4.0-10.0)
[2016-09-30 08:30] LABS: CALCIUM 8.9 mg/dL (8.5-10.1); COCKROFT - GAULT 119.23; CREATININE 0.7 mg/dL (0.7-1.3)
[2016-09-30] MEDS: ATORVASTATIN CA 40 MG TABLET (FP) PO SCH (09:35)
[2016-09-30] MEDS: POLYETHYLENE GLYCOL 3350 119 GM BTL PO SCH (09:35)
[2016-09-30] MEDS: VITAMIN B COMPLEX W/C COMBO TABLET (FP) PO SCH (09:35)
[2016-09-30] MEDS: PANTOPRAZOLE 40 MG TABLET (FP) PO SCH (09:35)
[2016-09-30] MEDS: ASPIRIN 81 MG CHEWABLE TABLETS PO SCH (09:35)
--- NOTE | 2016-09-30 09:53 | PN ---
Progress Note (short form) - Note Progress Note: Radiation Oncology c/o left arm pain with analgesics. Denies VINCENT/N/dizziness/diplopia. Chest tube to pleurovac. Tenderness in left shoulder. Mild expressive aphasia. Left arm weakness. B toes upgoing. CXR: persistent small ptx A/P Symptomatic brain and bone mets 2/2 lung adenoca, neurologically stable on decadron. Seen by CT surgery and pulmonary, cont mgt of pneumothorax. If deemed stable for transport to our office w/ or w/o chest tube in place, consider starting inpt WBRT. Cont steroids and pain mgt. Would benefit from CT left upper extremity.
--- NOTE | 2016-09-30 11:05 | PN ---
Progress Note, Physician Chief Complaint: no new c/o; at bedside; - Current Medication List Current Medications: Active Medications Acetaminophen/Codeine Phosphate (Tylenol # 3 -) 1 tab PO Q4H PRN PRN Reason: PAIN Last Admin: 09/28/16 09:30 Dose: 1 tab Aspirin (Asa -) 81 mg PO DAILY [facility] Last Admin: 09/30/16 09:35 Dose: 81 mg Atorvastatin Calcium (Lipitor -) 40 mg PO DAILY [facility] Last Admin: 09/30/16 09:35 Dose: 40 mg Dexamethasone Sodium Phosphate (Decadron Injection -) 4 mg IVPB Q6H-IV [facility] Last Admin: 09/30/16 09:35 Dose: 4 mg Insulin Aspart (Novolog Vial Sliding Scale -) 1 vial SQ ACHS [facility] PRN Reason: Protocol Last Admin: 09/30/16 06:22 Dose: 4 units Multivitamins (Total B With C -) 1 each PO DAILY [facility] Last Admin: 09/30/16 09:35 Dose: 1 each Pantoprazole Sodium (Protonix -) 40 mg PO DAILY [facility] Last Admin: 09/30/16 09:35 Dose: 40 mg Polyethylene Glycol (Miralax (For Daily Use) -) 17 gm PO DAILY [facility] Last Admin: 09/30/16 09:35 Dose: 17 grams Senna (Senna -) 2 tab PO HS PRN PRN Reason: CONSTIPATION - Objective Vital Signs: Vital Signs Temperature 97.6 F 09/30/16 06:39 Pulse Rate 68 09/30/16 06:39 Respiratory Rate 20 09/30/16 06:39 Blood Pressure 127/64 09/30/16 06:39 O2 Sat by Pulse Oximetry (%) 97 09/29/16 21:00 Constitutional: Yes: No Distress, Calm Eyes: Yes: Conjunctiva Clear HENT: Yes: Atraumatic Neck: Yes: Supple Cardiovascular: Yes: Regular Rate and Rhythm Respiratory: Yes: CTA Bilaterally Gastrointestinal: Yes: Soft. No: Distention, Tenderness Genitourinary: No: CVA Tenderness - Left, CVA Tenderness - Right, Hematuria Musculoskeletal: No: Joint Stiffness, Joint Swelling Extremities: No: Cold, Cool Edema: No Peripheral Pulses WNL: Yes Neurological: Yes: WNL, Alert, Oriented ...Motor Strength: WNL Psychiatric: Yes: WNL, Alert, Oriented. No: Agitated Labs: CBC, BMP 09/30/16 06:50 09/30/16 06:50 - ....Imaging Other: Report Reviewed Assessment/Plan 70yo male with h/o hyperlipidemia, recently diagnosed NSCLC on 09/15 via bronchoscopy, now s/p CT for guided needle lung biopsy for more tissue sample for treatment direction, noted to have a left apical pneumothorax pre biopsy. He denies any significant shortness of breath, chest pain. No cough or hemoptysis. No fevers, chills or sweats. He had a MRI brain which showed scattered nodules consistent with metastases. Left humeral metastases. pulm, oncology and neurology f/u radiation oncology eval for inpt radiation iv decadron per neuro for brain mets left chest tube still in falls and DVT pfx (TEDs and SCDs on); no heparin or lovenox b/o brain mets risk of bleed pt advised do not get OOB alone, call for help if needs OOB; risks of falls dw again with pt and ; started on po PPI for gastric PFX/ on decadron BGM and sq insulin prn / while on decadron d/w pt and about path results - mod to poor differentiated adenoCA carry unfortunately worse prognosis; also the fact that initial CT form august did not show bone mets while the CT scan from September does, also carry an aggressive, poor prognosis. Pt and decided to stay here and continue treatement with the local specialists for now. miralax po prn d/w pt and
--- NOTE | 2016-09-30 11:24 | PN ---
Progress Note (short form) - Note Progress Note: Thoracic F/U: Yesterday's CXR stable. No evidence of air-leak and minimal drainage. Now on water seal. Will check cxr today. Would start rad tx while tube is in on water seal and then do clamp trial and remove Thursday. Discussed with Dr. Costello who is comfortable with plan.
--- NOTE | 2016-09-30 12:13 | PN ---
Progress Note (short form) - Note Progress Note: Awake and alert. No CP or SOB. No air leak noted on water seal. Intake & Output 09/27/16 09/28/16 09/29/16 09/30/16 23:59 23:59 23:59 23:59 Intake Total 990 833 4308 400 Output Total 400 1400 1495 450 Balance 400 -1180 -355 -50 Last Vital Signs Temp Pulse Resp BP Pulse Ox 97.4 F L 54 L 18 124/67 97 09/30/16 09:00 09/30/16 09:00 09/30/16 09:00 09/30/16 09:00 09/29/16 21:00 Active Medications Acetaminophen/Codeine Phosphate (Tylenol # 3 -) 1 tab PO Q4H PRN PRN Reason: PAIN Last Admin: 09/28/16 09:30 Dose: 1 tab Aspirin (Asa -) 81 mg PO DAILY [facility] Last Admin: 09/30/16 09:35 Dose: 81 mg Atorvastatin Calcium (Lipitor -) 40 mg PO DAILY [facility] Last Admin: 09/30/16 09:35 Dose: 40 mg Dexamethasone Sodium Phosphate (Decadron Injection -) 4 mg IVPB Q6H-IV [facility] Last Admin: 09/30/16 09:35 Dose: 4 mg Insulin Aspart (Novolog Vial Sliding Scale -) 1 vial SQ ACHS [facility] PRN Reason: Protocol Last Admin: 09/30/16 06:22 Dose: 4 units Multivitamins (Total B With C -) 1 each PO DAILY [facility] Last Admin: 09/30/16 09:35 Dose: 1 each Pantoprazole Sodium (Protonix -) 40 mg PO DAILY [facility] Last Admin: 09/30/16 09:35 Dose: 40 mg Polyethylene Glycol (Miralax (For Daily Use) -) 17 gm PO DAILY [facility] Last Admin: 09/30/16 09:35 Dose: 17 grams Senna (Senna -) 2 tab PO HS PRN PRN Reason: CONSTIPATION Constitutional: Yes: NAD Eyes: Yes: Conjunctiva Clear, EOM Intact HENT: Yes: Atraumatic, Normocephalic Neck: Yes: Supple, Trachea Midline Cardiovascular: Yes: Regular Rate and Rhythm Respiratory: Yes: Left pigtail -> No air leak ...Clubbing: No Gastrointestinal: Yes: Normal Bowel Sounds, Soft. No: Tenderness Edema: No Neurological: Yes: Alert, Oriented Labs: Laboratory Results - last 24 hr 09/29/16 09/29/16 09/29/16 11:48 16:48 20:56 WBC RBC Hgb Hct MCV MCHC RDW Plt Count MPV Neutrophils % Lymphocytes % Monocytes % Eosinophils % Basophils % Sodium Potassium Chloride Carbon Dioxide Anion Gap BUN Creatinine POC Glucometer 240 296 268 Random Glucose Calcium 09/30/16 09/30/16 09/30/16 06:07 06:50 06:50 WBC 12.2 H RBC 4.46 Hgb 11.3 L Hct 34.2 L MCV 76.7 L MCHC 33.0 RDW 16.7 H Plt Count 224 MPV 7.0 L Neutrophils % 87.2 H Lymphocytes % 8.6 Monocytes % 4.1 Eosinophils % 0.0 Basophils % 0.1 Sodium 134 L Potassium 4.5 Chloride 98 Carbon Dioxide 27 Anion Gap 9 BUN 20 H Creatinine 0.7 POC Glucometer 223 Random Glucose 210 H Calcium 8.9 Problem List - Problems (1) Lung cancer Code(s): C34.90 - MALIGNANT NEOPLASM OF UNSP PART OF UNSP BRONCHUS OR LUNG (2) Brain metastases Code(s): C79.31 - SECONDARY MALIGNANT NEOPLASM OF BRAIN (3) Hyperlipidemia Code(s): E78.5 - HYPERLIPIDEMIA, UNSPECIFIED (4) Pleural effusion Code(s): J90 - PLEURAL EFFUSION, NOT ELSEWHERE CLASSIFIED (5) Pneumothorax Code(s): J93.9 - PNEUMOTHORAX, UNSPECIFIED Assessment/Plan 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
--- NOTE | 2016-09-30 17:13 | CONS ---
DATE OF CONSULTATION: 09/26/2016 REQUESTING PHYSICIAN: Kathrin León M.D. REASON FOR CONSULTATION: Metastatic lung cancer with brain metastases. HISTORY OF PRESENT ILLNESS: The patient is a 70-year-old gentleman with prior smoking history who was recently diagnosed with a left upper lobe lung mass with prominent left hilum and small left pleural effusion as well as a 1.5 cm right paratracheal lymph node on chest CT. He underwent thoracentesis, which showed atypical cells in the pleural fluid, followed by fiberoptic bronchoscopy with bronchial washings which showed pulmonary adenocarcinoma. He was admitted for additional tissue biopsy and was noted to have pneumothorax. He underwent CT guided biopsy of the left upper lobe mass which showed a moderate to poorly differentiated pulmonary adenocarcinoma, PD-L1 pending. The pleural fluid is positive. He had pigtail catheter placement to Pleurovac suction. An MRI of the brain disclosed multiple (at least 6) brain metastases with mass effect on the ventricle. He was evaluated by neurology, who recommends starting steroids and consideration of whole brain radiation therapy as well as an MRI of the cervical spine. He reports a productive cough without hemoptysis, shortness of breath, chest pain, visual changes, dizziness, headaches, nausea, or vomiting. He has word finding difficulty. He has pain in the left upper extremity for 2 months. Left shoulder x-ray showed left apical pneumothorax, left upper lobe lung mass, no lytic or blastic changes with mild degenerative changes in the AC joint. No history of radiation therapy or collagen vascular disease. PAST MEDICAL HISTORY: Hyperlipidemia. Tonsillectomy. ALLERGIES: No known drug allergies. CURRENT MEDICATIONS: Decadron 4 mg q.6 hours, Lipitor, aspirin 81 mg, Tylenol No. 3 p.r.n. FAMILY HISTORY: Noncontributory. SOCIAL HISTORY: , no children. Former smoker. No significant alcohol use. REVIEW OF SYSTEMS: As noted. PHYSICAL EXAMINATION: General: Well appearing, well nourished, well developed male appearing his chronological age in no acute distress. at bedside. Vital Signs: Temperature 98.8, blood pressure 133/71, pulse 68, respiratory rate 20, Sao2 of 98% room air. HEENT: Normocephalic, atraumatic. Moist mucous membranes. Anicteric sclerae. Clear oral cavity. Neck: No cervical adenopathy. No supraclavicular adenopathy. Chest: Left chest tube attached to Pleurovac. No palpable tenderness or mass in the paraspinal region. Decreased breath sounds left upper lobe. Cardiovascular: Regular. Abdomen: Soft, nontender. Nondistended. Extremities: No peripheral edema. Point tenderness on left shoulder. No mass or swelling along the clavicle or AC joint. Neurologic: Awake, alert, oriented x3. Mild expressive aphasia. Unable to name the president or month. Mild left facial droop. Motor exam positive for left pronator drift, inability to raise the left upper extremity over the shoulder, decreased left nurse specialist. Lower extremity motor exam is equal bilaterally. Deep tendon reflexes are brisk throughout, bilateral toes upgoing. Sensation to light touch is intact. Gait was not tested for patient's safety. RADIOLOGIC DATA: 1. CT chest as noted. 2. MRI of the brain, as noted. 3. Chest x-ray, little significant change in 5 to 10 percent residual left apical pneumothorax with left-sided pigtail chest tube re-identified. PATHOLOGIC DATA: As noted. IMPRESSION/PLAN: A 70-year-old former smoker with stage IV pulmonary adenocarcinoma status post thoracentesis, fiberoptic bronchoscopy and CT guided biopsies with post procedure pneumothorax, currently with chest tube to Pleurovac. He has multiple brain metastases with local mass effect. He has mild expressive aphasia and arm weakness which may be related to pain in the left shoulder. I reviewed the radiologic studies with the radiologist, who notes aggressive changes in the left humeral head and right rib consistent with metastases on the recent biospy CT scan. I agree with whole brain radiation therapy and in addition, the patient would benefit from palliative radiotherapy to the left shoulder for pain control. A bone scan and CT of the left upper extremity and possible MRI of the cervical spine would be helpful in defining extent of disease. While awaiting final pathology results which will be helpful in guiding systemic treatment decisions, he could proceed with radiation therapy once cleared from the pulmonary standpoint. Follow up chest x-ray and await thoracic surgery consult. Continue Decadron and pain management. Patient and are agreeable to continuing the workup and treatment here. Will continue to follow the patient with you and commence radiation therapy when stable. Thank you for asking me to see this patient. TERE SCHULZ M.D. [id number] MTDD
[2016-10-01] MEDS: DEXAMETHASONE SOD PHOSPHATE 4 MG/1 ML VIAL IVPB SCH ×4 (01:59→21:39)
[2016-10-01] MEDS: INSULIN SLIDING SCALE (NOVOLOG) 1 VIAL SQ SCH ×4 (06:14→21:45)
[2016-10-01] MEDS: PANTOPRAZOLE 40 MG TABLET (FP) PO SCH (09:37)
[2016-10-01] MEDS: VITAMIN B COMPLEX W/C COMBO TABLET (FP) PO SCH (09:37)
[2016-10-01] MEDS: ATORVASTATIN CA 40 MG TABLET (FP) PO SCH (09:37)
[2016-10-01] MEDS: ASPIRIN 81 MG CHEWABLE TABLETS PO SCH (09:37)
--- NOTE | 2016-10-01 09:59 | PN ---
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 While chest tube keeps lung more expanded, I don't think he is at risk of tension ptx as there is no evidence of air-leak and there is a chest tube in. OK to proceed to XRT if Pulmonary team agrees.
[2016-10-01] MEDS: POLYETHYLENE GLYCOL 3350 119 GM BTL PO SCH (11:24)
--- NOTE | 2016-10-01 11:58 | PN ---
Progress Note, Physician Chief Complaint: in bed has on/off LUE pain no headaches. - Current Medication List Current Medications: Active Medications Acetaminophen/Codeine Phosphate (Tylenol # 3 -) 1 tab PO Q4H PRN PRN Reason: PAIN Last Admin: 09/28/16 09:30 Dose: 1 tab Aspirin (Asa -) 81 mg PO DAILY [facility] Last Admin: 10/01/16 09:37 Dose: 81 mg Atorvastatin Calcium (Lipitor -) 40 mg PO DAILY [facility] Last Admin: 10/01/16 09:37 Dose: 40 mg Dexamethasone Sodium Phosphate (Decadron Injection -) 4 mg IVPB Q6H-IV [facility] Last Admin: 10/01/16 09:37 Dose: 4 mg Insulin Aspart (Novolog Vial Sliding Scale -) 1 vial SQ ACHS [facility] PRN Reason: Protocol Last Admin: 10/01/16 06:14 Dose: 4 units Multivitamins (Total B With C -) 1 each PO DAILY [facility] Last Admin: 10/01/16 09:37 Dose: 1 each Pantoprazole Sodium (Protonix -) 40 mg PO DAILY [facility] Last Admin: 10/01/16 09:37 Dose: 40 mg Polyethylene Glycol (Miralax (For Daily Use) -) 17 gm PO DAILY [facility] Last Admin: 10/01/16 11:24 Dose: 17 grams Senna (Senna -) 2 tab PO HS PRN PRN Reason: CONSTIPATION Last Admin: 10/01/16 09:37 Dose: 2 tab - Objective Vital Signs: Vital Signs Temperature 97.4 F L 10/01/16 06:38 Pulse Rate 45 L 10/01/16 06:38 Respiratory Rate 20 10/01/16 06:38 Blood Pressure 122/64 10/01/16 06:38 O2 Sat by Pulse Oximetry (%) 96 09/30/16 21:00 Constitutional: Yes: No Distress, Calm Eyes: Yes: Conjunctiva Clear HENT: Yes: Atraumatic Neck: Yes: Supple Cardiovascular: Yes: Regular Rate and Rhythm Respiratory: Yes: CTA Bilaterally Gastrointestinal: Yes: Soft. No: Distention, Tenderness Genitourinary: No: CVA Tenderness - Left, CVA Tenderness - Right Musculoskeletal: No: Joint Stiffness, Joint Swelling Extremities: No: Cold, Cool Edema: No Integumentary: No: Rash, Venous Stasis Changes Neurological: Yes: WNL, Alert, Oriented ...Motor Strength: WNL Psychiatric: Yes: WNL, Alert, Oriented. No: Agitated, Suicidal Ideation Labs: CBC, BMP 09/30/16 06:50 09/30/16 06:50 - ....Imaging Other: Report Reviewed Assessment/Plan 70yo male with h/o hyperlipidemia, recently diagnosed NSCLC on 09/15 via bronchoscopy, now s/p CT for guided needle lung biopsy for more tissue sample for treatment direction, noted to have a left apical pneumothorax pre biopsy. He denies any significant shortness of breath, chest pain. No cough or hemoptysis. No fevers, chills or sweats. He had a MRI brain which showed scattered nodules consistent with metastases. Left humeral metastases. pulm, oncology and neurology f/u radiation oncology eval for inpt radiation iv decadron per neuro for brain mets left chest tube still in falls and DVT pfx (TEDs and SCDs on); no heparin or lovenox b/o brain mets risk of bleed pt advised do not get OOB alone, call for help if needs OOB; started on po PPI for gastric PFX/ on decadron BGM and sq insulin prn / while on decadron miralax po prn d/w pt and
[2016-10-01] MEDS ORDERED: INSULIN (NOVOLOG) ASPART 100 UNITS/ML 10ML VIAL ONE (12:34)
--- NOTE | 2016-10-01 13:07 | PN ---
Progress Note (short form) - Note Progress Note: PULMONARY OFFERS NO COMPLAINTS AWAKE/ALERT VSS/AFEBRILE ANICTERIC DISTANT B/L BREATH SOUNDS LEFT PIGTAIL CATHETER-PLEUROVAC S1S2 BS+ SCD'S B/L CXR NOTED: LEFT UPPER LOBE MASS/LEFT APICAL PTX REMAINS FROM 09/28 MEDS/NOTES REVIEWED NSCLC LEFT UPPER LOBE PTX POST BX/SMALL BORE CT IN PLACE BRAIN METS ON MRI SEVERE LEFT SHOULDER PAIN FROM LYTIC BONE METS ONCO F/U/ONCO RT NOTED DVT PROPHYLAXSIS/DECADRON/PAIN RELIEF/WBRT TODAY Evelio RICHEY MD
--- NOTE | 2016-10-01 15:04 | PN ---
Progress Note (short form) - Note Progress Note: Radiation Oncology Left arm pain persists, denies VINCENT/N/dizziness/SOB/CP. Chest tube to pleurovac. Tenderness left shoulder. Mild expressive aphasia. Left arm weakness. B toes upgoing. Bone scan: increased uptake in left humeral head and right lateral rib. CXR: persistent large apical left pneumothorax and ANDRE mass. 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 CT surgery and pulmonary notes reviewed and appreciated. Deemed stable for RT. Received 1st WBRT today without difficult. Simulated for left shoulder tx to begin tomorrow. ?Role for RT to left hilar mass to relieve postobstructive lung collapse. CT surgery input. Cont decadron po, may consider beginning slow taper after 5th tx. Will cont RT tomorrow. updated.
[2016-10-02] MEDS: DEXAMETHASONE SOD PHOSPHATE 4 MG/1 ML VIAL IVPB SCH ×4 (02:01→21:03)
[2016-10-02] MEDS: INSULIN SLIDING SCALE (NOVOLOG) 1 VIAL SQ SCH ×4 (06:02→21:03)
[2016-10-02 07:54] LABS: BASOPHIL 0.1 % (0-2.0); EOSINOPHIL 0.1 % (0-4.5); MCH 25.6 pg (25.7-33.7); MCHC 33.3 g/dl (32.0-35.9); MEAN CELL VOLUME 76.7 fl (80-96); MEAN PLT VOLUME 7.1 fl (7.5-11.1); NEUTROPHILS 89.2 % (42.8-82.8); PLATELET COUNT 249 K/MM3 (134-434); RDW 17.4 % (11.9-15.9); WHITE BLOOD COUNT 12.2 K/mm3 (4.0-10.0)
[2016-10-02 08:36] LABS: ALBUMIN 2.5 g/dl (3.4-5.0); ALK PHOS 161 U/L (45-117); ANION GAP 10 (8-16); BILIRUBIN,TOTAL 0.4 mg/dL (0.2-1.0); CALCIUM 8.7 mg/dL (8.5-10.1); CO2 27 mmol/L (21-32); COCKROFT - GAULT 104.32; CREATININE 0.8 mg/dL (0.7-1.3); GLUCOSE,RANDOM 252 mg/dL (74-106); SGOT/AST 16 U/L (15-37); SGPT/ALT 26 U/L (12-78); TOT PROT 6.5 g/dl (6.4-8.2)
[2016-10-02] MEDS ORDERED: PT OWN MED DRAWER 7, Y5N ONE (08:58)
[2016-10-02] MEDS: PANTOPRAZOLE 40 MG TABLET (FP) PO SCH (09:23)
[2016-10-02] MEDS: ASPIRIN 81 MG CHEWABLE TABLETS PO SCH (09:23)
[2016-10-02] MEDS: VITAMIN B COMPLEX W/C COMBO TABLET (FP) PO SCH (09:23)
[2016-10-02] MEDS: ATORVASTATIN CA 40 MG TABLET (FP) PO SCH (09:24)
[2016-10-02] MEDS: POLYETHYLENE GLYCOL 3350 119 GM BTL PO SCH (09:24)
--- NOTE | 2016-10-02 09:41 | PN ---
Progress Note (short form) - Note Progress Note: Awake and alert. No CP or SOB. No air leak noted on water seal. CXR : No gross change in Left PTX from previous day. Intake & Output 09/29/16 09/30/16 10/01/16 10/02/16 23:59 23:59 23:59 23:59 Intake Total 1140 1240 1100 400 Output Total 1983 711 8078 450 Balance -355 790 -420 -50 Last Vital Signs Temp Pulse Resp BP Pulse Ox 97.5 F L 54 L 20 129/67 95 10/02/16 06:09 10/02/16 06:09 10/02/16 06:09 10/02/16 06:09 10/01/16 21:00 Active Medications Acetaminophen/Codeine Phosphate (Tylenol # 3 -) 1 tab PO Q4H PRN PRN Reason: PAIN Last Admin: 09/28/16 09:30 Dose: 1 tab Aspirin (Asa -) 81 mg PO DAILY [facility] Last Admin: 10/02/16 09:23 Dose: 81 mg Atorvastatin Calcium (Lipitor -) 40 mg PO DAILY [facility] Last Admin: 10/02/16 09:24 Dose: 40 mg Dexamethasone Sodium Phosphate (Decadron Injection -) 4 mg IVPB Q6H-IV [facility] Last Admin: 10/02/16 09:24 Dose: 4 mg Insulin Aspart (Novolog Vial Sliding Scale -) 1 vial SQ ACHS [facility] PRN Reason: Protocol Last Admin: 10/02/16 06:02 Dose: 4 units Multivitamins (Total B With C -) 1 each PO DAILY [facility] Last Admin: 10/02/16 09:23 Dose: 1 each Pantoprazole Sodium (Protonix -) 40 mg PO DAILY [facility] Last Admin: 10/02/16 09:23 Dose: 40 mg Polyethylene Glycol (Miralax (For Daily Use) -) 17 gm PO DAILY [facility] Last Admin: 10/02/16 09:24 Dose: Not Given Senna (Senna -) 2 tab PO HS PRN PRN Reason: CONSTIPATION Last Admin: 10/01/16 09:37 Dose: 2 tab Constitutional: Yes: NAD Eyes: Yes: Conjunctiva Clear, EOM Intact HENT: Yes: Atraumatic, Normocephalic Neck: Yes: Supple, Trachea Midline Cardiovascular: Yes: Regular Rate and Rhythm Respiratory: Yes: Left pigtail -> No air leak ...Clubbing: No Gastrointestinal: Yes: Normal Bowel Sounds, Soft. No: Tenderness Edema: No Neurological: Yes: Alert, Oriented Labs: Laboratory Results - last 24 hr 10/01/16 10/01/16 10/01/16 12:27 17:19 21:42 WBC RBC Hgb Hct MCV MCHC RDW Plt Count MPV Neutrophils % Lymphocytes % Monocytes % Eosinophils % Basophils % Sodium Potassium Chloride Carbon Dioxide Anion Gap BUN Creatinine Creat Clearance w eGFR POC Glucometer 175 241 235 Random Glucose Calcium Total Bilirubin AST ALT Alkaline Phosphatase Total Protein Albumin 10/02/16 10/02/16 10/02/16 06:01 06:30 06:30 WBC 12.2 H RBC 4.67 Hgb 12.0 Hct 35.9 MCV 76.7 L MCHC 33.3 RDW 17.4 H Plt Count 249 MPV 7.1 L Neutrophils % 89.2 H Lymphocytes % 6.9 L Monocytes % 3.7 L Eosinophils % 0.1 D Basophils % 0.1 Sodium 135 L Potassium 4.6 Chloride 98 Carbon Dioxide 27 Anion Gap 10 BUN 28 H D Creatinine 0.8 Creat Clearance w eGFR > 60 POC Glucometer 249 Random Glucose 252 H Calcium 8.7 Total Bilirubin 0.4 AST 16 ALT 26 D Alkaline Phosphatase 161 H Total Protein 6.5 Albumin 2.5 L Problem List - Problems (1) Lung cancer Code(s): C34.90 - MALIGNANT NEOPLASM OF UNSP PART OF UNSP BRONCHUS OR LUNG (2) Brain metastases Code(s): C79.31 - SECONDARY MALIGNANT NEOPLASM OF BRAIN (3) Hyperlipidemia Code(s): E78.5 - HYPERLIPIDEMIA, UNSPECIFIED (4) Pleural effusion Code(s): J90 - PLEURAL EFFUSION, NOT ELSEWHERE CLASSIFIED (5) Pneumothorax Code(s): J93.9 - PNEUMOTHORAX, UNSPECIFIED Assessment/Plan 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
--- NOTE | 2016-10-02 09:42 | PN ---
Progress Note, Physician Chief Complaint: had brain radiation tx per dr Costello at bedside, said Chauncey is getting more depressed and anxious but Chauncey said he will think about starting meds for it, while he does aknowledge the events are starting to overwhelm him. - Current Medication List Current Medications: Active Medications Acetaminophen/Codeine Phosphate (Tylenol # 3 -) 1 tab PO Q4H PRN PRN Reason: PAIN Last Admin: 09/28/16 09:30 Dose: 1 tab Aspirin (Asa -) 81 mg PO DAILY [facility] Last Admin: 10/02/16 09:23 Dose: 81 mg Atorvastatin Calcium (Lipitor -) 40 mg PO DAILY [facility] Last Admin: 10/02/16 09:24 Dose: 40 mg Dexamethasone Sodium Phosphate (Decadron Injection -) 4 mg IVPB Q6H-IV [facility] Last Admin: 10/02/16 09:24 Dose: 4 mg Insulin Aspart (Novolog Vial Sliding Scale -) 1 vial SQ ACHS [facility] PRN Reason: Protocol Last Admin: 10/02/16 06:02 Dose: 4 units Multivitamins (Total B With C -) 1 each PO DAILY [facility] Last Admin: 10/02/16 09:23 Dose: 1 each Pantoprazole Sodium (Protonix -) 40 mg PO DAILY [facility] Last Admin: 10/02/16 09:23 Dose: 40 mg Polyethylene Glycol (Miralax (For Daily Use) -) 17 gm PO DAILY [facility] Last Admin: 10/02/16 09:24 Dose: Not Given Senna (Senna -) 2 tab PO HS PRN PRN Reason: CONSTIPATION Last Admin: 10/01/16 09:37 Dose: 2 tab - Objective Vital Signs: Vital Signs Temperature 97.5 F L 10/02/16 06:09 Pulse Rate 54 L 10/02/16 06:09 Respiratory Rate 20 10/02/16 06:09 Blood Pressure 129/67 10/02/16 06:09 O2 Sat by Pulse Oximetry (%) 95 10/01/16 21:00 Constitutional: Yes: No Distress, Calm Eyes: Yes: Conjunctiva Clear HENT: Yes: Atraumatic Neck: Yes: Supple Cardiovascular: Yes: Regular Rate and Rhythm Respiratory: Yes: CTA Bilaterally Gastrointestinal: Yes: Soft. No: Distention, Tenderness Genitourinary: No: CVA Tenderness - Left, CVA Tenderness - Right Musculoskeletal: No: Joint Stiffness, Joint Swelling Extremities: No: Cold, Cool Edema: No Peripheral Pulses WNL: Yes Integumentary: No: Rash, Venous Stasis Changes Neurological: Yes: WNL, Alert, Oriented ...Motor Strength: WNL Psychiatric: Yes: WNL, Alert, Oriented. No: Agitated, Suicidal Ideation Labs: CBC, BMP 10/02/16 06:30 10/02/16 06:30 - ....Imaging Other: Report Reviewed Assessment/Plan 70yo male with h/o hyperlipidemia, recently diagnosed NSCLC on 09/15 via bronchoscopy, now s/p CT for guided needle lung biopsy for more tissue sample for treatment direction, noted to have a left apical pneumothorax pre biopsy. He denies any significant shortness of breath, chest pain. No cough or hemoptysis. No fevers, chills or sweats. He had a MRI brain which showed scattered nodules consistent with metastases. Left humeral metastases. pulm, oncology and neurology f/u radiation oncology f/u inpt radiation iv decadron per neuro for brain mets left chest tube still in, pulm and CT Sx f/u. falls and DVT pfx (TEDs and SCDs on); no heparin or lovenox b/o brain mets risk of bleed pt advised do not get OOB alone, call for help if needs OOB; anxiety depression sec to his disease - will f/u in am about meds versus psych consult BGM and sq insulin prn / while on decadron miralax po prn d/w pt and
--- NOTE | 2016-10-02 14:06 | PN ---
Progress Note (short form) - Note Progress Note: Radiation Oncology Left arm pain persists, no new neurologic complaints. Chest tube to pleurovac water seal. Tenderness left shoulder. Mild expressive aphasia. Left arm weakness. B toes upgoing. Bone scan: increased uptake in left humeral head and right lateral rib. CXR: persistent large apical left pneumothorax and ANDRE mass. Final path: Adenocarcinoma PD-L1 <1% (no expression) A/P Symptomatic brain and bone mets 2/2 lung adenoca with trapped lung, neurologically stable on decadron. CT surgery and pulmonary notes reviewed and appreciated. Deemed stable for RT. Tolerated 2nd WBRT and 1st left shoulder tx today. Pt wishes to discuss plan for chest tube and management of ptx. Could add RT to left hilar mass to relieve postobstructive lung collapse pending further pulmonary/surgical options. CT surgery/pulmonary input. Cont decadron po, may consider beginning slow taper after 5th tx. Will cont RT.
--- NOTE | 2016-10-02 16:40 | PN ---
Progress Note (short form) - Note Progress Note: Thoracic F/U: Discussed with Dr. Chamberlain and patient's . Will convert to Heimlich so this can be reapplied to suction if comes to ED with shortness of breath, as may have sob due to many reasons including PE. Also, agree with radiating actual lesion. This may or may not help expand his lung.
--- NOTE | 2016-10-02 23:20 | PN ---
Progress Note (short form) - Note Progress Note: Patient seen and examined still with lt. shoulder pain AFVSS Cor: RSR, No murmurs, No gallops Lungs: Clear to P&A Abd: Soft, Normal bowel sounds, No organomegaly Ext:No significant edema Labs/meds reviewed A/P 70 y/o patient with metastatic lung cancer/adenoca Lt. shoulder met brain mets/Lt. shoulder met On decadron getting RT Rad-onc to consider RT to lung mass? PDL1 is < 1% will start folic acid/B12 in anticipationof starting chemotherapy after RT
[2016-10-03] MEDS: DEXAMETHASONE SOD PHOSPHATE 4 MG/1 ML VIAL IVPB SCH ×4 (03:49→20:27)
[2016-10-03] MEDS: INSULIN SLIDING SCALE (NOVOLOG) 1 VIAL SQ SCH ×4 (06:41→23:05)
[2016-10-03 08:02] LABS: BASOPHIL 0.1 % (0-2.0); MCH 25.4 pg (25.7-33.7); MCHC 32.9 g/dl (32.0-35.9); MEAN CELL VOLUME 77.1 fl (80-96); MEAN PLT VOLUME 7.4 fl (7.5-11.1); NEUTROPHILS 88.8 % (42.8-82.8); PLATELET COUNT 240 K/MM3 (134-434); RDW 17.3 % (11.9-15.9); WHITE BLOOD COUNT 14.6 K/mm3 (4.0-10.0)
[2016-10-03 08:31] LABS: ALBUMIN 2.4 g/dl (3.4-5.0); ALK PHOS 152 U/L (45-117); ANION GAP 10 (8-16); BILIRUBIN,TOTAL 0.4 mg/dL (0.2-1.0); CALCIUM 8.6 mg/dL (8.5-10.1); CO2 28 mmol/L (21-32); COCKROFT - GAULT 104.32; CREATININE 0.8 mg/dL (0.7-1.3); GLUCOSE,RANDOM 234 mg/dL (74-106); SGOT/AST 14 U/L (15-37); SGPT/ALT 26 U/L (12-78); TOT PROT 6.3 g/dl (6.4-8.2)
[2016-10-03] MEDS ORDERED: PT OWN MED DRAWER 7, Y5N ONE (10:07)
[2016-10-03] MEDS: PANTOPRAZOLE 40 MG TABLET (FP) PO SCH (10:09)
[2016-10-03] MEDS: ASPIRIN 81 MG CHEWABLE TABLETS PO SCH (10:09)
[2016-10-03] MEDS: VITAMIN B COMPLEX W/C COMBO TABLET (FP) PO SCH (10:09)
[2016-10-03] MEDS: POLYETHYLENE GLYCOL 3350 119 GM BTL PO SCH (10:09)
[2016-10-03] MEDS: ATORVASTATIN CA 40 MG TABLET (FP) PO SCH (10:09)
[2016-10-03] MEDS: FOLIC ACID 1 MG TABLET (FP) PO SCH (10:09)
[2016-10-03] MEDS ORDERED: INSULIN (NOVOLOG) ASPART 100 UNITS/ML 10ML VIAL ONE (11:45)
--- NOTE | 2016-10-03 11:55 | PN ---
Progress Note, Physician Chief Complaint: in bed nad afebrile no new c/o feels well; at bedside; d/w them about all consults and meds and outpt f/u; DC planning to home with VNS over next 24 H O2 sat/RA rest: 91-92%; with exercise 92-93% - Current Medication List Current Medications: Active Medications Acetaminophen/Codeine Phosphate (Tylenol # 3 -) 1 tab PO Q4H PRN PRN Reason: PAIN Last Admin: 09/28/16 09:30 Dose: 1 tab Aspirin (Asa -) 81 mg PO DAILY [facility] Last Admin: 10/03/16 10:09 Dose: 81 mg Atorvastatin Calcium (Lipitor -) 40 mg PO DAILY [facility] Last Admin: 10/03/16 10:09 Dose: 40 mg Dexamethasone Sodium Phosphate (Decadron Injection -) 4 mg IVPB Q6H-IV [facility]ERT Last Admin: 10/03/16 09:56 Dose: 4 mg Folic Acid (Folic Acid -) 1 mg PO DAILY [facility] Last Admin: 10/03/16 10:09 Dose: 1 mg Insulin Aspart (Novolog Vial Sliding Scale -) 1 vial SQ ACHS [facility] PRN Reason: Protocol Last Admin: 10/03/16 11:41 Dose: 6 units Multivitamins (Total B With C -) 1 each PO DAILY [facility] Last Admin: 10/03/16 10:09 Dose: 1 each Pantoprazole Sodium (Protonix -) 40 mg PO DAILY [facility] Last Admin: 10/03/16 10:09 Dose: 40 mg Polyethylene Glycol (Miralax (For Daily Use) -) 17 gm PO DAILY [facility] Last Admin: 10/03/16 10:09 Dose: Not Given Senna (Senna -) 2 tab PO HS PRN PRN Reason: CONSTIPATION Last Admin: 10/01/16 09:37 Dose: 2 tab - Objective Vital Signs: Vital Signs Temperature 97.2 F L 10/03/16 06:00 Pulse Rate 57 L 10/03/16 09:45 Respiratory Rate 18 10/03/16 06:00 Blood Pressure 128/57 10/03/16 06:00 O2 Sat by Pulse Oximetry (%) 98 10/03/16 09:45 Constitutional: Yes: No Distress, Calm Eyes: Yes: Conjunctiva Clear HENT: Yes: Atraumatic Neck: Yes: Supple Cardiovascular: Yes: Regular Rate and Rhythm Respiratory: Yes: CTA Bilaterally Gastrointestinal: Yes: Soft. No: Distention, Tenderness Genitourinary: No: CVA Tenderness - Left, CVA Tenderness - Right Musculoskeletal: No: Joint Stiffness, Joint Swelling Extremities: No: Cold, Cool, Cyanosis Edema: No Peripheral Pulses WNL: Yes Integumentary: No: Rash, Venous Stasis Changes Neurological: Yes: WNL, Alert, Oriented ...Motor Strength: WNL Psychiatric: Yes: WNL, Alert, Oriented. No: Agitated, Suicidal Ideation Labs: CBC, BMP 10/03/16 06:30 10/03/16 06:30 - ....Imaging Other: Report Reviewed Assessment/Plan 70yo male with h/o hyperlipidemia, recently diagnosed NSCLC on 09/15 via bronchoscopy, now s/p CT for guided needle lung biopsy for more tissue sample for treatment direction, noted to have a left apical pneumothorax pre biopsy. He denies any significant shortness of breath, chest pain. No cough or hemoptysis. No fevers, chills or sweats. He had a MRI brain which showed scattered nodules consistent with metastases. Left humeral metastases. pulm, oncology and neurology f/u radiation oncology f/u inpt radiation iv decadron per neuro for brain mets, switch to po left chest tube in, Heimlich valve for DC home with it; pt and aware how to care for it falls and DVT pfx (TEDs and SCDs on); no heparin or lovenox b/o brain mets risk of bleed pt advised do not get OOB alone, call for help if needs OOB; anxiety depression sec to his disease - will f/u in am about meds versus psych consult BGM and sq insulin prn / while on decadron miralax po prn d/w pt and
--- NOTE | 2016-10-03 12:14 | PN ---
Progress Note (short form) - Note Progress Note: PULMONARY OFFERS NO COMPLAINTS HAS BEGUN WBRT/LEFT HUMERUS AWAKE/ALERT VSS/AFEBRILE ANICTERIC DISTANT B/L BREATH SOUNDS LEFT PIGTAIL CATHETER-PLEUROVAC S1S2 BS+ SCD'S B/L CXR NOTED: LEFT UPPER LOBE MASS/LEFT APICAL PTX REMAINS FROM 09/28 MEDS/NOTES REVIEWED NSCLC LEFT UPPER LOBE PTX POST BX/SMALL BORE CT IN PLACE BRAIN METS ON MRI SEVERE LEFT SHOULDER PAIN FROM LYTIC BONE METS ONCO F/U/ONCO RT NOTED DVT PROPHYLAXSIS/DECADRON/PAIN RELIEF/RT PLANNED Evelio RICHEY MD
--- NOTE | 2016-10-03 15:43 | PN ---
Progress Note (short form) - Note Progress Note: Radiation Oncology RT ongoing. Left arm pain but no neurologic or respiratory complaints. Chest tube to pleurovac water seal. Tenderness left shoulder. Mild expressive aphasia. Left arm weakness. B toes upgoing. Bone scan: increased uptake in left humeral head and right lateral rib. CXR: Unchanged large apical left pneumothorax and ANDRE mass. 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 Tolerating WBRT (3/10 fx) and Lt shoulder RT (2/10 fx). Discussed w med onc/pulmonary/CT surgery. Pt will have CT valve placed before going home. Will add thoracic RT to lung tumor beginning next week to help reexpand collapsed ANDRE. Concurrent chemo to begin when WBRT completed. Cont decadron po and will consider beginning taper after 5th tx if neurologically stable. Cont pain mgt. Will cont RT on Mon.
--- NOTE | 2016-10-03 15:59 | PN ---
Progress Note (short form) - Note Progress Note: Pt without complaints of chest pain, sob. Vital Signs Period Temp Pulse Resp BP Sys/Fong Pulse Ox Last 24 Hr 97.1 F-97.5 F 48-72 18-20 119-134/57-69 92-98 CT-drainage serous, 30 ml as per nursing staff. PE: Left pigtail cath: serous drainage without evidence of air leak. CXR-10/03-apical pntx with pigtail catheter in left chest. No SQ emphysema. unchanged from 10/02 70 yo male with ANDRE lung mass/pntx s/p pigtail cath/biopsy Spoke with Dr. Guevara and pigtail catheter to be placed to heimlich value. This was completed by myself. The distal end was connected to a leg bag. A hole was cut in the top of the bag to allow for escape of air if needed. VNS to be arranged prior to discharge
[2016-10-03] MEDS: ACETAMINOPHEN WITH CODEINE 300MG/30MG TABLET PO PRN (20:26)
--- NOTE | 2016-10-04 00:05 | PN ---
Progress Note (short form) - Note Progress Note: Patient seen and examined Lt. shoulder pain. More alert. AFVSS Cor: RSR, No murmurs, No gallops Lungs: Clear to P&A Abd: Soft, Normal bowel sounds, No organomegaly Ext:No significant edema Labs/meds reviewed A/P 70 y/o patient with metastatic lung cancer/adenoca Lt. shoulder met brain mets/Lt. shoulder met On decadron getting RT Rad-onc to consider RT to lung mass? discussed with rad-onc plan to add carbo/alimta probably 10 days into RT to lung discussed tentative plan with to start folic acid/B!2
[2016-10-04] MEDS: DEXAMETHASONE SOD PHOSPHATE 4 MG/1 ML VIAL IVPB SCH ×2 (02:17→10:14)
[2016-10-04] MEDS: INSULIN SLIDING SCALE (NOVOLOG) 1 VIAL SQ SCH ×2 (06:08→12:40)
[2016-10-04] MEDS ORDERED: INSULIN (NOVOLOG) ASPART 100 UNITS/ML 10ML VIAL ONE ×2 (06:35→11:41)
[2016-10-04] MEDS ORDERED: CYANOCOBALAMIN (VITAMIN B-12) 1000 MCG/1 ML VIAL IM ONE (08:30)
[2016-10-04] MEDS: FOLIC ACID 1 MG TABLET (FP) PO SCH (10:14)
[2016-10-04] MEDS: ASPIRIN 81 MG CHEWABLE TABLETS PO SCH (10:14)
[2016-10-04] MEDS: ATORVASTATIN CA 40 MG TABLET (FP) PO SCH (10:14)
[2016-10-04] MEDS: PANTOPRAZOLE 40 MG TABLET (FP) PO SCH (10:14)
[2016-10-04] MEDS: VITAMIN B COMPLEX W/C COMBO TABLET (FP) PO SCH (10:15)
[2016-10-04] MEDS: POLYETHYLENE GLYCOL 3350 119 GM BTL PO SCH (10:15)
--- NOTE | 2016-10-04 11:32 | DS ---
Physical Examination Vital Signs: Vital Signs Temperature 97.8 F 10/04/16 06:00 Pulse Rate 48 L 10/04/16 06:00 Respiratory Rate 18 10/04/16 06:00 Blood Pressure 130/65 10/04/16 06:00 O2 Sat by Pulse Oximetry (%) 95 10/03/16 21:00 Findings/Remarks: in bed, and daughter at bedside pt and family want to take pt home; he feels OK, walks without help; O2 sat>90 % RA rest & exercise d/w pt and decardon doses and taper; SQ insulin and BGM; pt and had teaching from nurse how to do sq insulin' all scripts done, meds and consults and outpt f/u and management d/w pt and at bedside; insulin and diabetic supplies scribed on paper scripts and given to pt radiation outpt per dr Costello; chemotherapy per ONC home VNS arranged T time 65 minutes Constitutional: Yes: No Distress, Calm Eyes: Yes: Conjunctiva Clear HENT: Yes: Atraumatic Neck: Yes: Supple Cardiovascular: Yes: Regular Rate and Rhythm Respiratory: Yes: CTA Bilaterally Gastrointestinal: Yes: Soft. No: Distention, Tenderness Renal/: No: CVA Tenderness - Left, CVA Tenderness - Right Musculoskeletal: No: Joint Stiffness, Joint Swelling Extremities: No: Cold, Cool Edema: No Peripheral Pulses WNL: Yes Integumentary: No: Rash, Venous Stasis Changes Neurological: Yes: WNL, Alert, Oriented ...Motor Strength: WNL Psychiatric: Yes: WNL, Alert, Oriented. No: Agitated, Suicidal Ideation Labs: CBC, BMP 10/03/16 06:30 10/03/16 06:30 Discharge Summary Reason For Visit: LUNG MASS,CHEST TUBE PLACEMENT Current Active Problems Brain metastases (Acute) Hyperlipidemia (Acute) Lung cancer (Acute) Pleural effusion (Acute) Pneumothorax (Acute) Procedures: Principal: L pneumothorax L lung mass/CA Other Procedures: chest tube placed in;. decadron and radiation startde for brain mets;. seen by pulm, ONC Hospital Course: improved; DC home and f/u as advised Condition: Stable - Instructions Diet, Activity, Other Instructions: Sponge baths only. Follow up in Dr. Guevara's office in two weeks, please call prior to visit so outpatient CHEST X-RAY may be arranged by his office staff before your appointment. If you experience chest pain, shortness of breath please seek medical attention immediately. HEIMLICH VALVE TO LEG BAG SHOWN f/u PCP, oncology, neurology and radiation oncology as advised pulmonary and CT surgery f/u taper decadron as advised Protonix for stomach prophylaxis while on decadron check BGM and cover with sq Insulin per sliding scale as instructed falls PFX d/w pt and , d/w staff scripts done Referrals: Sarah Ho [Staff Physician] - Bin Jackson MD [Staff Physician] - Jaziel Costello MD [Staff Physician] - Mohit Guevara MD [Staff Physician] - Sascha Chamberlain MD [Staff Physician] - Vikas Elaine MD [Staff Physician] - Edmund Tomas MD [Staff Physician] - Disposition: VNS/HOME HEALTH CARE - Home Medications Comprehensive Discharge Medication List: Ambulatory Orders Aspirin [ASA -] 81 mg PO DAILY 09/08/16 Atorvastatin Ca [Lipitor] 40 mg PO DAILY 09/08/16 Vitamin B Complex 1 each PO DAILY 09/09/16 Acetaminophen W/ Codeine #3 [Tylenol # 3 -] 1 tab PO Q4H PRN 09/24/16
[2016-10-04 14:55] VITALS: BP 127/59; PULSE 60; TEMP 98.2
== END 2016-10-04 16:28 | disposition home health service (06) | DRG 181 ==
LOC: JRADIR 07:22 → JSAMEDAYSX 11:40 → J8W 16:54
PROVIDERS: ADMIT Specialist; ATTEND Specialist
PROC: 0W9B30Z Drainage of Left Pleural Cavity with Drainage Device, Percutaneous Approach (ICD-10-PCS; 2016-09-25)
PROC: 0BBL3ZX Excision of Left Lung, Percutaneous Approach, Diagnostic (ICD-10-PCS; principal; 2016-09-25 09:00)
PROC: D0Y07ZZ Contact Radiation of Brain (ICD-10-PCS; 2016-10-01)
DX: C34.12 Malignant neoplasm of upper lobe, left bronchus or lung (principal); J93.83 Other pneumothorax; J90 Pleural effusion, not elsewhere classified; C79.31 Secondary malignant neoplasm of brain; G81.94 Hemiplegia, unspecified affecting left nondominant side; R47.01 Aphasia; C79.51 Secondary malignant neoplasm of bone; E78.5 Hyperlipidemia, unspecified; Z87.891 Personal history of nicotine dependence; R20.1 Hypoesthesia of skin; M25.512 Pain in left shoulder
CPT/HCPCS: 32557; 36415; 71010-TC; 71020-TC; 73030-TC-LT; 77012-TC; 78306-TC; 80048; 80053; 85025; 88108; 88305-TC; 88313-TC; 88341-TC; 88342-TC; 93306-TC; 94760; 94761; A9503; C1729; C1769